=== PATIENT | female | born 1935 | race Caucasian/White ===

== ENCOUNTER 2020-07-09 00:24 | Outpatient (CLI) | payer MEDICARE, SELFPAY ==
[2020-07-10 03:00] LABS: SARS-CoV-2 RNA PCR Negative
== END 2020-07-09 00:25 | disposition home or self-care (01) ==
LOC: ANHCOVIDDT 00:24
PROVIDERS: PCP Family Medicine; Visit Provider Specialist
DX: Z01.812 Encounter for preprocedural laboratory examination (principal); Z20.828 Contact with and (suspected) exposure to other viral communicable diseases
CPT/HCPCS: 87635; C9803; U0003

== ENCOUNTER 2020-07-11 01:49 | Day surgery (SDC) | payer MEDICARE, SELFPAY ==
[2020-07-10 17:33] VITALS: BMI 28.3
[2020-07-11] VITALS (17 sets, daily range): BP systolic 112–207; BP diastolic 54–98; PULSE 61–70; RESP 13–21; TEMP 36.2–36.6; O2SAT 95–100
--- NOTE | 2020-07-11 09:30 | SUR.PREOP ---
ARRIVES AMBULATORY TO [facility] FOR SCHEDULED LHC W/ DR. HOLDEN. AT SIDE. DENIES CP OR SOB ON ARRIVAL. IS A&OX3, GAIT STEADY. ORIENTED TO ROOM , PLAN OF CARE, PROCEDURE. QUESTIONS ANSWERED. VOICES UNDERSTANDING. IV STARTED, LABS SENT, VS OBTAINED, PULSES MARKED, HAIR CLIPPED, CONSENT SIGNED. WILL CONTINUE TO MONITOR.
--- NOTE | 2020-07-11 09:55 | SUR.PREOP ---
DR. HOLDEN TO BEDSIDE TO SEE PT.
[2020-07-11 09:57] LABS: Basophils Absolute Auto 0.1 K/mm3 (0.0-0.1); Basophils Percent Auto 0.8 % (0.2-1.2); Eosinophils Absolute Auto 0.1 K/mm3 (0-0.3); Eosinophils Percent Auto 1.2 % (0-4.4); Hematocrit 42.1 % (37.0-47.0); Hemoglobin 14.2 g/dL (12.0-15.0); Immature Granulocyte Absolute 0.02 K/mm3 (0.00-0.031); Immature Granulocyte Percent A 0.3 % (0-0.5); Lymphocytes Absolute Auto 1.47 K/mm3 (0.9-3.2); Lymphocytes Percent Auto 24.2 % (18.3-44.2); Mean Corpuscular HGB Conc 33.7 g/dl (32-36); Mean Corpuscular Hemoglobin 32.1 pg (26-34); Mean Corpuscular Volume 95.2 fl (80-100); Mean Platelet Volume 9.5 fl (7.4-10.4); Monocytes Absolute Auto 0.5 K/mm3 (0.1-0.6); Monocytes Percent Auto 7.4 % (2.6-8.5); Neutrophils Percent Auto 66.1 % (45.5-73.1); Platelet Count Result 272 k/mm3 (150-375); Red Blood Count 4.42 M/mm3 (4.2-5.4); Red Cell Distribution Width 12.9 % (11.5-14.5); White Blood Count 6.1 K/mm3 (4.5-10.0)
[2020-07-11 10:06] LABS: INR 0.9; Prothrombin Time 13.1 Seconds (11.1-14.7)
[2020-07-11 10:07] LABS: Anion Gap 11 mmol/L (8-16); Blood Urea Nitrogen 17 mg/dL (7-17); Calcium 10.2 mg/dL (8.4-10.2); Carbon Dioxide 31 mmol/L (22-30); Chloride 98 mmol/L (98-107); Estimated Glomerular Filt Rate > 60; Glucose 101 mg/dL (65-105); Potassium 3.9 mmol/L (3.4-5.0); Sodium 140 mmol/L (137-145)
--- NOTE | 2020-07-11 10:37 | WPDMODSED ---
Moderate Sedation Note-Pt Data Patient Data Diagnosis: intermittent atypical chest pain abnormal nuclear stress test Present Complaint: rare episodes of nonexertional chest discomfort Procedure to be performed/Plan: left heart catheterization Allergies Allergy/AdvReac Type Severity Reaction Status Date / Time clarithromycin Allergy Unknown Unknown Verified 07/11/20 10:18 metronidazole Allergy Unknown Unknown Verified 07/11/20 10:18 nystatin Allergy Unknown Unknown Verified 07/11/20 10:18 LEVOFLOXICIN Allergy Unknown Unknown Uncoded 07/11/20 10:18 SULFA Allergy Unknown Unknown Uncoded 07/11/20 10:18 Home Medications Medication Instructions Recorded Confirmed Type omeprazole 20 mg capsule,delayed 20 mg PO DAILY #90 cap 11/28/19 07/10/20 Rx release simvastatin 10 mg tablet 10 mg PO DAILY #90 tablet 12/01/19 07/10/20 Rx aspirin 81 mg tablet,delayed 81 mg PO DAILY 02/05/20 07/10/20 History release coenzyme Q10 100 mg capsule 100 mg PO DAILY 02/05/20 07/10/20 History docusate sodium 50 mg capsule 50 mg PO DAILY 02/05/20 07/10/20 History glucosam 750 mg-chondroi 100 1 tablet PO DAILY 02/05/20 07/10/20 History mg-hyalur 1.65 mg-CF borate 108 mg tablet krill oil 500 mg capsule 500 mg PO DAILY 02/05/20 07/10/20 History methylsulfonylmethane 1,000 mg 1,000 mg PO BID 02/05/20 07/10/20 History capsule wjgxmimkrklo-kpckzkbq-vytmti tablet 1 tablet PO DAILY 02/05/20 07/10/20 History psyllium husk 0.4 gram capsule 0.4 gm PO DAILY 02/05/20 07/10/20 History losartan 100 See Rx Instructions .ROUTE 06/25/20 07/10/20 Rx mg-hydrochlorothiazide 25 mg tablet .COMPLEX #90 tablet calcium phosphate-vitamin D3 1 tablet PO DAILY 07/10/20 07/10/20 History lutein-zeaxanthin 1 cap PO DAILY 07/10/20 07/10/20 History Current Medications: Active Medications Sodium Chloride (Normal Saline Iv) 500 mls @ 100 mls/hr IV CONT .Q5H KETAN Sedation/Anesthesia: No previous sedation/anesthesia problems (including family history). [facility] Past Medical History Medical History (Updated 02/05/20 @ 15:59 by Leo Berkowitz MD) Bilateral cataracts GERD without esophagitis Hyperlipidemia Hypertension Prediabetes Surgical History Surgical History (Updated 02/05/20 @ 16:14 by Leo Berkowitz MD) H/O knee surgery torn meniscus repair - right(2000), left(2005) Family History Family History Father Diabetes mellitus Mother Hypertension Acute myocardial infarction Cerebrovascular accident Social History Social History Smoking status: Never smoker Second hand tobacco smoke exposure: Yes Alcohol intake: never Substance use: never Substance use type: does not use Living arrangements: with family Gender identity (if verbalized by the patient): Female Spiritual care concerns: No Agree to blood products: Yes Mod Sed Physical Exam Physical Exam Pre Procedural Exam: Normal: Neck, Throat, Airway, Lungs, Heart Size, Heart Rate, Heart Rhythm, Neuro Exam and Extremities and Variation: Appearance ( pleasant short statured white female no distress) Hours since solid foods: 12 Hours since liquid intake: 12 Internal Medicine - PN: Obj Da Vital Signs Vital Signs: Vital Signs - 24 hr 07/11/20 09:45 Temperature 36.6 C Pulse Rate 67 Respiratory Rate 16 Blood Pressure 207/81 H Pulse Oximetry 98 Meds/Results Medications: Active Medications Generic Name Dose Route Start Last Admin Trade Name Freq PRN Reason Stop Dose Admin Sodium Chloride 500 mls @ 100 mls/hr 07/11/20 06:00 Normal Saline Iv IV CONT .Q5H KETAN Labs CBC & Chem 7: 07/11/20 09:45 07/11/20 09:45 Labs: Laboratory Results - last 24 hr 07/11/20 07/11/20 07/11/20 09:45 09:45 09:45 WBC 6.1 RBC 4.42 Hgb 14.2 Hct 42.1 MCV 95.2 MCH 32.1 MCHC 33.7 RDW 12.9 Plt Co
--- NOTE | 2020-07-11 11:13 | WPDCARDPROC ---
Cardiac Cath Procedure Note Date of procedure:: 07/11/20 Performing physician:: Hernan Ham MD Indication:: intermittent atypical sounding chest pain abnormal nuclear stress test Brief clinical history:: this is an 84-year-old woman without previous documented coronary artery disease was experiencing intermittent episodes of chest pain both with and without exertion. A nuclear stress test was significantly abnormal prompting recommendation for angiography. Procedure Procedure performed:: Left heart catheterization with left ventriculography and coronary angiography Sedation/Medication given:: Versed 2 mg case start time 10:49 a.m. case end time 11:03 a.m. sedation provided by Angeles Cortez RN, trained observer Access site:: right femoral artery Estimated blood loss:: 20-30 cc Procedure note:: patient was brought to the cardiac catheterization lab in the postabsorptive state the right femoral triangle was prepped and draped in the usual fashion. Anesthesia was provided with 1% lidocaine infiltrated locally. Using the modified Seldinger technique the right femoral artery was punctured. Immediately after obtaining arterial flow the patient coughed and the needle came out of the artery I then held manual pressure for hemostasis and punctured the artery a 2nd time. Following this a 5 Wallisian vascular sheath was placed. There was a moderate amount of oozing around the 5 Wallisian the sheath and so I upsized to a 6 Wallisian sheath prior to continuing and performing left heart catheterization. Five Wallisian angled pigtail catheter was used to document left-sided hemodynamics and perform a left ventriculogram in the TAVERAS projection. After this standard 5 Wallisian FL4 and JR4 catheters were used to engage inject the left and right coronaries in multiple projections. The procedure was well tolerated. Patient was taken to the holding area for manual sheath removal at the termination of the case. She left the factory laborer with no evidence of a groin hematoma despite the need to hold pressure as mentioned above. Findings:: Hemodynamics: Central aortic pressure 1 62/58 left ventricle 162/0 end-diastolic of 10. There is no gradient on pullback across the aortic valve. Left ventricle is normal in size LV contractility appears to be vigorous hyperdynamic ejection fraction appears to be in the vicinity of 70-75% by visual estimation the left main coronary artery is nicely patent the LAD is a medium caliber artery proximally giving rise to a fairly large septal perforating branch after this the LAD itself is 100% occluded with no antegrade filling. Circumflex is a medium caliber artery giving rise to the marginal branch is there is a 99% stenosis in the proximal 3rd of the circumflex followed by another long somewhat complex 80-90% stenosis between the 2 major marginal branches. There is some collateral filling from the circumflex to the distal RCA. The right coronary artery is a small to medium in caliber is 100% occluded in the 1st portion. There is a acute marginal RV branch prior to the occlusion that is nicely patent and provides a collateral to the mid LAD. There is late filling of the distal right coronary vessels and as detailed above some left to right collateral filling of these vessels as well. Conclusion:: 1. Surprisingly severe three-vessel coronary artery disease in this minimally symptomatic 84-year-old lady 2. hyperdynamic left ventricular systolic function 3. 100% occlusion of the left anterior descending after large septal perforating complex with collateral flow from the acute marginal RCA branch. 4. To serial high-grade complex lesions in the circumflex 99% proximally and 90% in the midportion as detailed above 5. 100% occlusion of the proximal RCA with remaining patency of an acute marginal branch which collateralizes the occluded LAD Hernan Ham MD [facility]
--- NOTE | 2020-07-11 12:50 | SUR.PHASEII ---
DR. MARI TO BEDSIDE TO SPEAK W/ PT AND .
--- NOTE | 2020-07-11 18:39 | SUR.PHASEII ---
1822-pt up to the restroom after bedrest completed. Groin soft and non-tender both before and after rising. Moderate right pedal pulse noted. AOx4. Will continue to monitor.
--- NOTE | 2020-07-11 19:44 | SUR.PHASEII ---
1930-pt given D/C orders and instructions. Questions answered and verbalized understanding. AOx4. Emphasized the importance of absolutely no strenuous activity until visiting the CV surgeon. Pt and family verbalized understanding. PIV removed intact. Groin soft and non-tender, no evidence of bleeding or hematoma noted. Moderate right pedal pulse noted. Taken via wheelchair to waiting vehicle. No distress noted or verbalized at time of departure.
== END 2020-07-11 19:48 | disposition home or self-care (01) ==
PROVIDERS: PCP Family Medicine; Visit Provider Specialist
PROC: 4A023N7 Measurement of Cardiac Sampling and Pressure, Left Heart, Percutaneous Approach (ICD-10-PCS; CPT 93452; principal; 2020-07-11 10:00)
DX: I25.10 Atherosclerotic heart disease of native coronary artery without angina pectoris (principal); R94.39 Abnormal result of other cardiovascular function study; R07.89 Other chest pain; I10 Essential (primary) hypertension; E78.5 Hyperlipidemia, unspecified; R73.03 Prediabetes; K21.9 Gastro-esophageal reflux disease without esophagitis; Z79.82 Long term (current) use of aspirin
CPT/HCPCS: 36415; 80048; 85025; 85610; 93458; C1887; C1894; J1644; J2250; J2405; J3010; J7040

== ENCOUNTER → 2020-07-17 09:56 | Outpatient (CLI) | payer MEDICARE, SELFPAY ==
--- NOTE | ~2020-07-17 | DEXA_ITS ---
Bone Density Report Name: Zulema Bravo Age: 84 Sex: Female Ethnicity: White Date of : 1935 Indication: postmenopausal; screening for osteoporosis; height loss; hysterectomy; Referring Provider: Leo Berkowitz Study: Bone densitometry was performed. Exam Date: July 17, 2020 Accession number: [id number] Bone Density: Region BMD T-score Z-score Classification AP Spine (L1, L2) 0.955 -0.2 2.4 Normal Femoral Neck (Left) 0.637 -1.9 0.5 Osteopenia Total Hip (Left) 0.924 -0.1 2.1 Normal Femoral Neck (Right) 0.735 -1.0 1.4 Normal Total Hip (Right) 0.875 -0.6 1.7 Normal Total Hip Mean 0.900 -0.4 1.9 Normal World Health Organization criteria for BMD impression classify patients as: Normal (T-score at or above -1.0), Osteopenia (T-score between -1.0 and -2.5), or Osteoporosis (T-score at or below -2.5). 10-year Fracture Risk(1): Major Osteoporotic Fracture 15% Hip Fracture 4.2% Reported Risk Factors: [place] (), Neck BMD=0.637, BMI=29.1 (1) FRAX(R) Version 3.08. Fracture probability calculated for an untreated patient. Fracture probability may be lower if the patient has received treatment. Clinical Information Provided by Patient: Has used the following medications: Vitamin D, Calcium, MTV Has the following medical conditions: Hysterectomy Patient maximum height was 60 Menopause Age: 47 No regular weight bearing exercise Does not regularly consume dairy products Drinks caffeinated beverages Onset of menses at age 13 Number of children 2 Missed period for more than 6 months in a row Impression: The patient has low bone mass, based on the Left Femoral Neck T-score. The patient has an estimated ten-year risk of hip fracture of 4.2% and an estimated ten-year risk of major fracture of 15%, based on the WHO FRAX algorithm. Discussion: BONE DENSITY IS LOW AT ONE OR MORE SKELETAL SITES. THE PATIENT'S BMD AND CLINICAL RISK FACTORS CONTRIBUTE TO THIS PATIENT'S INCREASED RISK OF FRACTURE. This patient's lowest T-score is low at one or more skeletal sites. It meets the World Health Organization's (WHO) criteria for ?low bone mass? (T-score between -1.0 and -2.5). The patient's 10-year risk of hip fracture as calculated by FRAX exceeds the threshold where pharmacological therapy is recommended by the National Osteoporosis Foundation (NOF). However, all treatment decisions require clinical judgment and consideration of individual patient factors, including patient preferences, comorbidities, previous drug use, risk factors not captured in the FRAX model (e.g., frailty, falls, vitamin D deficiency, increased bone turnover, interval significant decline in bone density) and possible under or overestimation of fracture risk by FRAX. The patient should follow a healthful lifestyle (good nutr
--- NOTE | ~2020-07-17 | MM_ITS ---
EXAMINATION: MM screening ania BI w haydee HISTORY: Screening mammogram, family history of breast cancer in her sister. TECHNIQUE: Craniocaudal and mediolateral oblique 3-D tomosynthesis images were obtained and synthetic 2-D images were generated. CAD analysis was submitted and interpreted. COMPARISON: 06/08/2019, 07/03/2018 BREAST PARENCHYMAL COMPOSITION: There are scattered areas of fibroglandular density. FINDINGS: Scattered benign-appearing calcifications are present. There is no evidence of suspicious m ass, calcification, or architectural distortion to suggest malignancy in either breast. There has bee n no suspicious interval change. IMPRESSION: 1. No mammographic evidence of malignancy. 2. Recommend routine screening mammography in one year. BI-RADS Category 2: Benign finding(s). Reviewed, dictated and finalized at location A. ONOLOGIST INTENSIVIST
== END ==
PROVIDERS: PCP Family Medicine; Visit Provider Family Medicine
DX: Z12.31 Encounter for screening mammogram for malignant neoplasm of breast (principal); Z78.0 Asymptomatic menopausal state; M85.852 Other specified disorders of bone density and structure, left thigh
CPT/HCPCS: 77063; 77067; 77080

== ENCOUNTER 2020-08-03 13:11 | Emergency (ER) | payer MEDICARE, SELFPAY ==
--- NOTE | ~2020-08-03 | XR_ITS ---
XR chest 1V portable DATE: 08/03/2020 13:50 INDICATION: Left upper chest/back pain, arm pain TECHNIQUE: Portable upright AP chest on 08/03/2020 at 1339 hours COMPARISON: None FINDINGS: Old healed right rib fractures. There is mild scoliosis and degenerative spurring of the th oracic and lumbar spine. Normal heart size. No hilar or mediastinal enlargement. No pulmonary infiltrate or consolidation, ple ural effusion or pulmonary vascular congestion or pneumothorax. IMPRESSION: No active cardiopulmonary disease Reviewed, dictated and finalized at location A. DREN'S SERVICE SUPERVISOR
[2020-08-03 13:10] VITALS: BP 162/65; PULSE 76; RESP 18; TEMP 36.7; O2SAT 100
--- NOTE | 2020-08-03 13:26 | ED.CHESTPAIN ---
HPI - Chest Pain General Chief Complaint: Chest Pain Stated Complaint: left arm numbness Time Seen by Provider: 08/03/20 13:18 History of Present Illness HPI narrative: Brought in by EMS from home for back and arm pain. She has intermittent pain in the back near the scapula and the left arm around the elbow for the past 2 days. She has a h/o of CAD and is scheduled for bypass in the next few weeks. She was afraid this pain was related. She tried taking nitroglycerine without relief. She does complain of some CRAIG, which seems to be separate from the pain. She contacted her print color operator and they told her to come get checked out. No CP, palpitations. Related Data Home Medications Medication Instructions Recorded Confirmed aspirin 81 mg tablet,delayed 81 mg PO DAILY 02/05/20 07/10/20 release coenzyme Q10 100 mg capsule 100 mg PO DAILY 02/05/20 07/10/20 docusate sodium 50 mg capsule 50 mg PO DAILY 02/05/20 07/10/20 glucosam 750 mg-chondroi 100 1 tablet PO DAILY 02/05/20 07/10/20 mg-hyalur 1.65 mg-CF borate 108 mg tablet krill oil 500 mg capsule 500 mg PO DAILY 02/05/20 07/10/20 methylsulfonylmethane 1,000 mg 1,000 mg PO BID 02/05/20 07/10/20 capsule mumhkvzbppsn-rpiekqao-inarel tablet 1 tablet PO DAILY 02/05/20 07/10/20 psyllium husk 0.4 gram capsule 0.4 gm PO DAILY 02/05/20 07/10/20 calcium phosphate-vitamin D3 1 tablet PO DAILY 07/10/20 07/10/20 lutein-zeaxanthin 1 cap PO DAILY 07/10/20 07/10/20 Allergies Allergy/AdvReac Type Severity Reaction Status Date / Time clarithromycin Allergy Unknown Unknown Verified 08/03/20 13:18 metronidazole Allergy Unknown Unknown Verified 08/03/20 13:18 nystatin Allergy Unknown Unknown Verified 08/03/20 13:18 LEVOFLOXICIN Allergy Unknown Unknown Uncoded 08/03/20 13:18 SULFA Allergy Unknown Unknown Uncoded 07/11/20 10:18 Review of Systems Review of Systems: All systems reviewed & are unremarkable except as noted in HPI and below Constitutional: Constitutional: Denies chills and Denies fever(s) Cardiovascular: Cardiovascular: Denies chest pain Respiratory: Respiratory: Reports dyspnea on exertion Gastrointestinal: Gastrointestinal: Denies abdominal pain, Denies nausea and Denies vomiting Musculoskeletal: Musculoskeletal: Reports back pain Neurologic: Denies dizziness, Denies numbness and Denies weakness PMFSH Past Medical History Medical History Bilateral cataracts GERD without esophagitis Hyperlipidemia Hypertension Prediabetes Surgical History Surgical History H/O knee surgery torn meniscus repair - right(2000), left(2005) Family History Family History Father Diabetes mellitus Mother Hypertension Acute myocardial infarction Cerebrovascular accident Social History Social History Smoking status: Never smoker Second hand tobacco smoke exposure: Yes Alcohol intake: never Substance use: never Substance use type: does not use Gender identity (if verbalized by the patient): Female Spiritual care concerns: No Agree to blood products: Yes Exam Const: General: no acute distress and alert Nutritional Appearance: well nourished Orientation/consciousness: patient oriented x3 HENMT: Head: normal to inspection Neck: Neck: normal visual inspection Chest: Chest palpation & inspection: normal inspection of the chest Resp: Effort & Inspection: normal respiratory effort Auscultation: clear to auscultation bilaterally Cardio: Rate: regular rate Rhythm: regular rhythm GI: GI Palp: Yes Soft to palpation and No Tenderness to palpation present (GI) Back/Spine/Pelvis: Other: Tender in left trapezius, paraspinal muscles, and rhomboid Skin: General skin exam: normal color Rashes: no rashes Wounds: no wounds Neuro: Gen
[2020-08-03] MEDS: diazePAM INJ (*CRX) 10 MG/2 ML SYRINGE 5 MG IV PUSH (13:42)
[2020-08-03 13:53] LABS: Basophils Absolute Auto 0.1 K/mm3 (0.0-0.1); Basophils Percent Auto 1.1 % (0.2-1.2); Eosinophils Absolute Auto 0.1 K/mm3 (0-0.3); Eosinophils Percent Auto 2.4 % (0-4.4); Hematocrit 36.3 % (37.0-47.0); Hemoglobin 12.5 g/dL (12.0-15.0); Immature Granulocyte Absolute 0.01 K/mm3 (0.00-0.031); Immature Granulocyte Percent A 0.2 % (0-0.5); Lymphocytes Absolute Auto 1.18 K/mm3 (0.9-3.2); Mean Corpuscular HGB Conc 34.4 g/dl (32-36); Mean Corpuscular Hemoglobin 32.3 pg (26-34); Mean Corpuscular Volume 93.8 fl (80-100); Mean Platelet Volume 9.7 fl (7.4-10.4); Monocytes Absolute Auto 0.4 K/mm3 (0.1-0.6); Monocytes Percent Auto 8.8 % (2.6-8.5); Neutrophils Absolute Auto 2.8 K/mm3 (1.3-6.7); Neutrophils Percent Auto 61.5 % (45.5-73.1); Platelet Count Result 249 k/mm3 (150-375); Red Blood Count 3.87 M/mm3 (4.2-5.4); Red Cell Distribution Width 12.7 % (11.5-14.5); White Blood Count 4.5 K/mm3 (4.5-10.0)
--- NOTE | 2020-08-03 13:59 | ECG_ITS ---
Measurements Intervals Foley Rate: 56 P: 38 [place]: 155 QRS: -16 QRSD: 90 T: 54 QT: 397 QTc: 386 Interpretive Statements SINUS BRADYCARDIA LEFT VENTRICULAR HYPERTROPHY AND ST-T CHANGE BASELINE ARTIFACT- I, III, AVL, AVF BORDERLINE ECG Electronically Signed On 08-03-2020 15:46:49 MANAGER HEMATOLOGY by Luis Tanner D.O.
[2020-08-03 14:06] LABS: Anion Gap 6 mmol/L (8-16); Blood Urea Nitrogen 16 mg/dL (7-17); Calcium 9.8 mg/dL (8.4-10.2); Carbon Dioxide 31 mmol/L (22-30); Chloride 98 mmol/L (98-107); Estimated CRCL calculation 50 ml/min; Estimated Glomerular Filt Rate > 60; Glucose 94 mg/dL (65-105); Potassium 3.8 mmol/L (3.4-5.0); Sodium 135 mmol/L (137-145)
[2020-08-03 14:18] LABS: Troponin I < 0.012 ng/mL (0.000-0.034)
[2020-08-03 15:27] VITALS: BP 166/69; PULSE 53; RESP 18; O2SAT 99
[2020-08-03 16:06] VITALS: BP 166/70; PULSE 57; RESP 18; O2SAT 98
== END 2020-08-03 16:12 | disposition home or self-care (01) ==
PROVIDERS: Emergency Provider Emergency Medicine; PCP Family Medicine
DX: M54.6 Pain in thoracic spine (principal); K21.9 Gastro-esophageal reflux disease without esophagitis; E78.5 Hyperlipidemia, unspecified; I10 Essential (primary) hypertension; H26.9 Unspecified cataract; R73.03 Prediabetes; Z79.82 Long term (current) use of aspirin; Z79.84 Long term (current) use of oral hypoglycemic drugs; R00.1 Bradycardia, unspecified; I51.7 Cardiomegaly
CPT/HCPCS: 36415; 71045; 80048; 84484; 85025; 93005; 96374; 99284; J3360

== ENCOUNTER → 2020-10-16 11:42 | Outpatient (CLI) | payer MEDICARE, SELFPAY ==
--- NOTE | ~2020-10-16 | XR_ITS ---
EXAMINATION: XR ribs LT 2V w CXR 2V INDICATION: Left chest pain TECHNIQUE: PA and lateral views of the chest and 3 views of the left ribs were obtained. COMPARISON: 08/03/2020 FINDINGS: There are changes of interval coronary artery bypass grafting. The lungs are free of acute opacities. There is no pleural effusion or pneumothorax. There is an age-indeterminate fracture of th e left first rib. Multiple healed right-sided rib fractures are noted. IMPRESSION: 1. Age-indeterminate fracture of the left first rib. 2. Interval coronary artery bypass grafting. Reviewed, dictated and finalized at location A. GENCY SERVICE WORKER
== END ==
PROVIDERS: PCP Nurse Practitioner Family; Visit Provider Nurse Practitioner Family
DX: R07.81 Pleurodynia (principal); S22.32XD Fracture of one rib, left side, subsequent encounter for fracture with routine healing; X58.XXXD Exposure to other specified factors, subsequent encounter
CPT/HCPCS: 71046; 71100

== ENCOUNTER 2020-12-22 12:32 | Outpatient (CLI) | payer MEDICARE, SELFPAY ==
--- NOTE | ~2020-12-22 | US_ITS ---
EXAMINATION: US venous doppler LE RT DATE: 12/22/2020 13:11 INDICATION: Right lower limb pain. TECHNIQUE: Grayscale ultrasound images without and with compression and Doppler ultrasound images of the right lower extremity veins were obtained. COMPARISON: Ultrasound 09/15/2017 FINDINGS: The visualized portions of right common femoral vein, profunda (deep) femoral vein, femoral vein, pop liteal vein, peroneal veins, posterior tibial veins, and greater saphenous vein outflow are patent. IMPRESSION: 1. No deep venous thrombosis. Reviewed, dictated and finalized at location B.
== END 2020-12-22 12:33 | disposition home or self-care (01) ==
LOC: ANHIMG 12:43
PROVIDERS: PCP Internal Medicine Cardiovascular Disease; Visit Provider Internal Medicine Cardiovascular Disease
DX: R60.0 Localized edema (principal)
CPT/HCPCS: 93971

== ENCOUNTER 2021-01-09 13:30 | Outpatient (RCR) | payer MEDICARE, SELFPAY ==
--- NOTE | 2020-12-11 10:22 | PTOPEVAL ---
PHYSICAL THERAPY EVALUATION Thank you for referring Zulema Bravo to [facility].? Zulema was evaluated for the dx of cerivcal OA/pain. The patient is scheduled to be seen for therapy?2 x/week for 4 weeks. Please review, sign, date and return this plan of care NORMA. I agree with and certify that the following plan of care is medically necessary. Referring Physician Date Attending Provider: Briseyda ARNOLD *PT Outpatient Evaluation Start: 12/11/20 09:33 Freq: Status: Active Protocol: Document 12/11/20 09:33 [facility] (Rec: 12/11/20 10:13 [facility] [id number]) Therapy Assessment Status Assessment Status Evaluation Evaluation Information Problem Additional Evaluation Detail Pt reports seeing a chiropractor for a few months due to neck pain which helped but had to stop due to having heart bypass surgery in Aug. Pt had trouble with her neck after the heart surgery so she was seeing the chiropractor for last few months until about a week ago. Pt complains of pain at her neck and up into the back of her head. The pain is worse in the evening. Pt does her housework, cooking, shopping. Diagnostic Tests X-Rays For This Problem Yes: cervical OA MRI For This Problem Yes: total spine OA Pain Assessment Timing of Pain Assessment Timing of Pain Assessment Assessment Pain Scale Pain Scale Used Numeric (1 - 10) Self Report Pain Assessment Neck Reported Pain Level 8 Pain Description Heavy,Tightness,With Movement Pain Frequency Chronic Greatest Pain Intensity 10 Pain Aggravating Factors Bending,Lifting Pain Behaviors Anxious,Guarding Pain Score Pain Score 8: Self Report Interventions Used Interventions Used By Clinicians Education,Heat Pain Relief Interventions Used By Heat,Inactivity/Rest,Position Patient Change Cervical and Lumbar ROM Cervical ROM Cervical Flexion (0-60) 30 Query Text:Active in Degrees Cervical Extension (0-70) 23 Query Text:Active in Degrees Cervical Lateral Flexion Right (0-50) 25 Query Text:Active in Degrees Cervical Lateral Flexion Left (0-50) 24 Query Text:Active in Degrees Cervical Rotation Right (0-90) 12 Query Text:Active in Degrees Cervical Rotation Left (0-90) 12 Query Text:Active in Degrees Upper Extremity Range of Neal
--- NOTE | 2021-01-09 14:16 | PTOPEVAL ---
PHYSICAL THERAPY DISCHARGE Thank you for referring Zulema Bravo to [facility].? The patient has been seen 9 visits for the dx of cervical OA/pain. Zulema's goals are essentially met and peaked with a skilled PT need. DC PT. Please review, sign, date and return this plan of care. I agree with and certify the following plan of care. Referring Physician Date Referring Provider: Briseyda ESPANA RN *PT Outpatient Discharge Start: 12/11/20 09:33 Freq: Status: Active Protocol: Document 01/09/21 13:27 [facility] (Rec: 01/09/21 14:16 [facility] [id number]) Therapy Assessment Status Assessment Status Assessment Status Discharge Outpatient Past Medical History Cardiovascular History Hx Chest Pain Yes Hx Hypercholesterolemia Yes Hx Hypertension Yes Evaluation Information Problem Diagnosis cervical pain/OA Onset chronic Additional Evaluation Detail Patient feels she is better since the eval noting her neck turns better and pain is less intense/less frequent. The pain is still worse in the evening and doesn't always sleep well due to the pain. Pain Assessment Timing of Pain Assessment Timing of Pain Assessment Assessment Pain Scale Pain Scale Used Numeric (1 - 10) Self Report Pain Assessment Neck Reported Pain Level 4 Pain Description Tightness Pain Frequency Acute,Chronic Other Pain Aggravating Factors weather Pain Score Pain Score 4: Self Report Interventions Used Interventions Used By Clinicians Education,Exercise,Heat,Manual Therapy Techniques Pain Relief Interventions Used By Heat,Inactivity/Rest,Position Patient Change Cervical and Lumbar ROM Cervical ROM Cervical Flexion (0-60) 45 Query Text:Active in Degrees Cervical Extension (0-70) 37 Query Text:Active in Degrees Cervical Lateral Flexion Right (0-50) 25 Query Text:Active in Degrees Cervical Lateral Flexion Left (0-50) 24 Query Text:Active in Degrees Cervical Rotation Right (0-90) 18 Query Text:Active in Degrees Cervical Rotation Left (0-90) 19 Query Text:Active in Degrees Palpation Assessment Palpation Palpation decreased 50% to a minimal tightness at cervical paraspinals, scalenes, SCM, levator scapulae and upper/mid traps sina. Gait Assessment Gait Pattern Assessment Other Gait Observations less
== END 2021-01-14 09:12 | disposition home or self-care (01) ==
LOC: ANHPT 13:30
PROVIDERS: PCP Nurse Practitioner Family
DX: M54.2 Cervicalgia (principal); M79.12 Myalgia of auxiliary muscles, head and neck; M79.18 Myalgia, other site
CPT/HCPCS: 97014; 97110; 97140; 97162; G0283

== ENCOUNTER → 2022-05-18 12:50 | Outpatient (CLI) | payer MEDICARE, SELFPAY ==
--- NOTE | ~2022-05-18 | MM_ITS ---
EXAMINATION: MM screening ania BI w haydee HISTORY: Screening mammogram TECHNIQUE: Craniocaudal and mediolateral oblique 3-D tomosynthesis images were obtained and synthetic 2-D images were generated. CAD analysis was submitted and interpreted. COMPARISON: 07/17/2020, 07/2019, 07/03/2018 bilateral screening mammogram examinations BREAST PARENCHYMAL COMPOSITION: There are scattered areas of fibroglandular density. FINDINGS: Scattered bilateral benign calcifications. There is no evidence of suspicious mass, calcifi cation, or architectural distortion to suggest malignancy in either breast. There has been no suspici ous interval change. IMPRESSION: 1. No mammographic evidence of malignancy. 2. Recommend routine screening mammography in one year. BI-RADS Category 2: Benign finding(s). Reviewed, dictated and finalized at location A.
== END ==
PROVIDERS: PCP Family Medicine; Visit Provider Family Medicine
DX: Z12.31 Encounter for screening mammogram for malignant neoplasm of breast (principal)
CPT/HCPCS: 77063; 77067

== ENCOUNTER 2022-07-14 11:00 | Outpatient (RCR) | payer MEDICARE, SELFPAY ==
--- NOTE | 2022-05-25 17:27 | PTOPEVAL1 ---
Assessment and note entered by Jennifer Gonzales, PT Evaluation Information Assessment Status Evaluation Reported Pain Level Pain Score 3: Self Report Additional Pain Score Comments pressure increases through the day Assessment PT Clinical Summary Pt present's w/ c/o pain in left side low back and back of left thigh began abour a month ago when was going down stairs and felt like something rolled over in her very low left side of back/ glutes. C/o pressure sensation at L ischial tuberosity, discomfort on L SIJ. Hx of scoliosis, R SIJ impairments, multiple surgeries including full hysterectomy (not laproscopic). Evaluation shows SIJ alignment issue likely L inominate downslip and L inflare with L anterior torsion along with RLE leg longer than left. Pt also demo' s multiple areas of increased mm tone with tenderness related to abnormal alignment and compensation for lumbopelvic muscle weakness. Pt will thus greatly benefit from therapy in order to address these deficits and return to PLOF. Pt was educated on alignment issues, prognosis, and performed initial muscle energy techniques to improve alignment. Was provided initial HEP to assist in self-alignment of pelvis between therapy sessions and educated on benefits of cryotherapy on inflammation and pain. Plan of Care Interventions Manual Therapy,Neuro Re-education,Therapeutic Activities,Therapeutic Exercise,Self-Care/Home Management,Other Other Interventions Taping, shoe insert heel lift These treatments will address the objective and functional deficits as defined above. The patient will be advanced safely and appropriately in order for the patient to progress towards his/her prior level of function. Additional exercises will be introduced and as well as a comprehensive home exercise program upon discharge, if needed, ?to ensure carryover of functional gains achieved in the clinic. This treatment plan has been reviewed and agreement upon by the patient.
--- NOTE | 2022-06-18 15:15 | BUPTOPEVAL1 ---
Assessment and note entered by Jennifer Gonzales, PT Evaluation Information Assessment Status Progress Subjective Information Still having difficulty with going up and down steps, unable to go up with each leg and still goes down backwards. States had increased pain after vacuuming the other day. Reported Pain Level Pain Score 2: Self Report Additional Pain Score Comments 45-50% improved Assessment PT Clinical Summary Pt presents for assessment of progress with her current POC regarding her pelvic alignment issue and left hamstring discomfort. Pt demo's ability to ascend stairs with reciprocal pattern and able to descend with sidestepping pattern vs descending with a retro stepping pattern. Pt cont to demo RLE length increase by 0.5 compared to LLE and will benefit from a heel lift in her left shoe to level her pelvis. Pt educated on benefit of therapy as she is improving but has not fully met her goals. Pt appears reluctant to continue, was educated she may cease therapy at any time and may continue her exercises as she sees fit. Suggested benefit of continuing therapy to resolve remainder of pain, and promote improved functional mobility. Plan of Care Interventions Electrical Stimulation,Hot Pack/Cold Pack,Manual Therapy,Neuro Re-education,Therapeutic Activities, Therapeutic Exercise,Self-Care/Home Management Other Interventions Heel lift left shoe PT Services Indicated Yes Treatment Frequency and 1-2x weekly x 4 weeks Duration These treatments will address the objective and functional deficits as defined above. The patient will be advanced safely and appropriately in order for the patient to progress towards his/her prior level of function. Additional exercises will be introduced and as well as a comprehensive home exercise program upon discharge, if needed, ?to ensure carryover of functional gains achieved in the clinic. This treatment plan has been reviewed and agreement upon by the patient.
--- NOTE | 2022-06-28 16:12 | PCPTNOTE ---
Patient called & cancelled scheduled appointment this week 06/29-07/01 due to wanting to work on exercises at home. Will inform front end assistant if see wants to continue after this week.
--- NOTE | 2022-07-16 10:35 | BUPTOPDC ---
Assessment and note entered by Jennifer Gonzales, PT Assessment Status Discharge Diagnosis back pain and numbness Subjective Information Reports feeling 90% improved. Has been doign her home exercises. Cont to go down her stairs backwards on her hands and knees. States she cannot use her handrail with one hand and is afraid to go down sideways because that was what she was doing when she had the initial injury and felt something roll over in her hip. She does report her pain increases most with sitting long periods (multiple hours at a time) up to a 3/10. Reported Pain Level Pain Score 0: Self Report Additional Pain Score Comments 90% improved Assessment PT Clinical Summary Pt reports feeling 90% improved overall. Pt has a tendency to repeat questions related to her HEP, refer to her prior therapy POC and HEP related to that POC though she has been educated multiple times this is a different issue. Pt education related to current HEP, and mobility has been reenforced multiple times also, handouts and instructions provided related to HEP with patient choosing to perform activities in a different manner than instructed. Overall related to her goals, she shows improved gait without AD, improved speed of gait, improved ROM without pain, but has not shown improvement in her hip strength or alignment of pelvis. As patient is at times less than compliant with therapy, has chosen previously to perform her exercises independently vs attend therapy as POC dictates, and her mobility as she prefers vs how she was educated, we are discharging her from therapy services at this time . Plan of Care Treatment Frequency and Discharge Duration
== END 2022-07-16 15:34 | disposition home or self-care (01) ==
LOC: ANHPT 11:00
PROVIDERS: PCP Family Medicine; Visit Provider Anesthesiology
DX: R20.2 Paresthesia of skin (principal); M54.17 Radiculopathy, lumbosacral region; M46.1 Sacroiliitis, not elsewhere classified; M79.10 Myalgia, unspecified site
CPT/HCPCS: 97014; 97110; 97112; 97140; 97161; 97530; G0283

== ENCOUNTER 2022-12-22 00:22 | Emergency (ER) | payer MEDICARE, SELFPAY ==
[2022-12-22] VITALS (36 sets, daily range): BP systolic 160–195; BP diastolic 64–158; PULSE 65–90; RESP 12–23; TEMP 36.4–36.8; O2SAT 91–100
--- NOTE | ~2022-12-22 | CT_ITS ---
CT Facial Bones Clinical Indication: Injury, swelling Technique: Contiguous axial scans were obtained through the facial bones followed by coronal and sagi ttal reconstructions. Dose reduction technique was used on this scan by utilizing automated exposure control and iterative reconstruction technique. The dose-length product (DLP) was 447.21 mGy-cm. Findings: No fractures are identified. The visualized paranasal sinuses are clear. Intraorbital soft tissues appear normal. Subcutaneous hematoma noted in the scalp of the left forehead. Impression: No fracture identified. Subcutis hematoma in the scalp of the left forehead. Reviewed, dictated and finalized at location . Impression: No fracture identified. Subcutis hematoma in the scalp of the left forehead.
--- NOTE | ~2022-12-22 | CT_ITS ---
Non-contrast Head CT History: Head injury Technique: Axial non-contrast imaging of the brain was performed. Dose reduction technique was used on this scan by utilizing automated exposure control and iterative reconstruction technique. The dose -length product (DLP) was 605.33 mGy-cm. Findings: There is no evidence of intracranial hemorrhage, mass lesion, or acute infarct. Brain par enchyma appears normal. The ventricles and subarachnoid spaces are dilated. The calvarium appears n ormal. The visualized paranasal sinuses and mastoid air cells are clear. There is subcutaneous hemat an in the left forehead scalp. Impression: No acute intracranial modality. [id number] generalized atrophy. Subcutaneous hematoma in the scalp at the left forehead. Reviewed, dictated and finalized at [facility]. Impression: No acute intracranial modality. [id number] generalized atrophy. Subcutaneous hematoma in the scalp at the left forehead.
[2022-12-22 02:26] LABS: Basophils Percent Auto 0.3 % (0.2-1.2); Eosinophils Absolute Auto 0.1 K/mm3 (0-0.3); Eosinophils Percent Auto 0.7 % (0-4.4); Hematocrit 40.6 % (37.0-47.0); Hemoglobin 13.5 g/dL (12.0-15.0); Immature Granulocyte Absolute 0.04 K/mm3 (0.00-0.031); Immature Granulocyte Percent A 0.4 % (0-0.5); Lymphocytes Absolute Auto 1.65 K/mm3 (0.9-3.2); Lymphocytes Percent Auto 16.2 % (18.3-44.2); Mean Corpuscular HGB Conc 33.3 g/dl (32-36); Mean Corpuscular Hemoglobin 32.1 pg (26-34); Mean Corpuscular Volume 96.7 fl (80-100); Mean Platelet Volume 10.4 fl (7.4-10.4); Monocytes Absolute Auto 0.7 K/mm3 (0.1-0.6); Monocytes Percent Auto 6.4 % (2.6-8.5); Neutrophils Absolute Auto 7.8 K/mm3 (1.3-6.7); Platelet Count Result 275 k/mm3 (150-375); White Blood Count 10.2 K/mm3 (4.5-10.0)
[2022-12-22 02:46] LABS: Alanine Aminotransferase 28 U/L (6-35); Alkaline Phosphatase 95 U/L (38-126); Anion Gap 9 mmol/L (8-16); Aspartate Amino Transferase 36 U/L (14-36); Bilirubin,Total 0.4 mg/dL (0.2-1.3); Blood Urea Nitrogen 24 mg/dL (7-17); Calcium 9.8 mg/dL (8.4-10.2); Carbon Dioxide 27 mmol/L (22-30); Chloride 101 mmol/L (98-107); Estimated Glomerular Filt Rate > 60; Glucose 105 mg/dL (65-110); Potassium 3.9 mmol/L (3.4-5.0); Sodium 137 mmol/L (137-145)
[2022-12-22 02:50] LABS: INR 1.1; Prothrombin Time 13.3 Seconds (11.1-14.7)
[2022-12-22] MEDS: TETANUS,DIPHTHERIA,AC PERTUSSIS ADULT (0.5 ML) BOOSTRIX IM (02:55)
--- NOTE | 2022-12-22 03:54 | ED.GENADULT ---
HPI - General Adult General Chief complaint: Fall Stated complaint: head injury Time Seen by Provider: 12/22/22 01:54 History of Present Illness HPI narrative: 87-year-old female history of CAD on aspirin and Plavix presented with mechanical fall. Per patient, she was walking outside her driveway which is on an incline, had a stumble fell and hit her face. Unknown LOC. She noted significant swelling to her forehead and cut to her forehead, so presented to the ED for further evaluation. She denied nausea, vomiting, injury elsewhere, chest pain, shortness of breath, abdominal pain, dysuria, hematuria Past medical history: CAD Past surgical history: CABG Medications: Aspirin, Plavix Allergies: Metronidazole, statin levofloxacin Related Data Home Medications Medication Instructions Recorded Confirmed aspirin 81 mg tablet,delayed 81 mg PO DAILY 02/05/20 03/09/22 release (Aspir-) docusate sodium 50 mg capsule 50 mg PO DAILY 02/05/20 03/09/22 (Stool Softener) glucosam 750 mg-chondroi 100 1 tablet PO DAILY 02/05/20 03/09/22 mg-hyalur 1.65 mg-CF borate 108 mg tablet ([employer]) methylsulfonylmethane 1,000 mg 1,000 mg PO BID 02/05/20 03/09/22 capsule (MSM) szpmiuyziemf-nxecefdz-uomzee tablet 1 tablet PO DAILY 02/05/20 03/09/22 psyllium husk 0.4 gram capsule 0.4 gm PO DAILY 02/05/20 03/09/22 (Daily Fiber) calcium phosphate 250 mg-vitamin 1 tablet PO DAILY 07/10/20 03/09/22 D3 10 mcg (400 unit) chewable tablet lutein 25 mg-zeaxanthin 5 mg 1 cap PO DAILY 07/10/20 03/09/22 capsule clopidogrel 75 mg tablet 75 mg PO DAILY 10/16/20 03/09/22 furosemide 40 mg tablet 20 mg PO QAM 02/10/21 03/09/22 metoprolol tartrate 25 mg tablet 12.5 mg PO BID 02/10/21 03/09/22 amlodipine 2.5 mg tablet 2.5 mg PO DAILY 03/09/22 03/09/22 losartan 100 mg tablet 100 mg PO DAILY 03/09/22 03/09/22 Allergies Allergy/AdvReac Type Severity Reaction Status Date / Time clarithromycin Allergy Unknown Unknown Verified 03/09/22 13:42 metronidazole Allergy Unknown Unknown Verified 03/09/22 13:42 nystatin Allergy Unknown Unknown Verified 03/09/22 13:42 LEVOFLOXICIN Allergy Unknown Unknown Uncoded 03/09/22 13:42 SULFA Allergy Unknown Unknown Uncoded 03/09/22 13:42 Review of Systems Review of Systems: See HPI [facility] Past Medical History Medical History Bilateral cataracts CAD (coronary artery disease) Chronic neck pain GERD without esophagitis Hyperlipidemia Hypertension Prediabetes Surgical History Surgical History H/O knee surgery torn meniscus repair - right(2000), left(2005) History of cataract surgery 2019 - b/l 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 Family History Family History Father Diabetes mellitus Mother Hypertension Acute myocardial infarction Cerebrovascular accident Social History Social History Smoking status: Never smoker Second hand tobacco smoke exposure: Yes Alcohol intake: never Substance use: never Substance use type: does not use Living arrangements: with family Occupation/Education: retired Gender identity (if verbalized by the patient): Female Spiritual care concerns: No Agree to blood products: Yes Exam Narrative: APPEARANCE: Alert, calm and cooperative, no acute distress, phonating, sitting comfortably during visit, frail HEAD: hematoma to forehead with 4 cm laceration, no step offs, no active bleeding EYES: Bilateral ecchymosis to eyes consistent with raccoon eyes, Pupils equal round an reactive to light, extra ocular movements intact, no conjunctival injection Ears: Right sided hemotympanum, no clear liquid, no drainage of blood, left TM within normal limits NOSE: Normal no drainage, no gross evidence of nasal hematoma NECK: Supple, w
== END 2022-12-22 05:40 | disposition short-term general hospital (02) ==
PROVIDERS: Emergency Provider Emergency Medicine; PCP Family Medicine
DX: S00.83XA Contusion of other part of head, initial encounter (principal); S00.12XA Contusion of left eyelid and periocular area, initial encounter; S00.11XA Contusion of right eyelid and periocular area, initial encounter; H73.891 Other specified disorders of tympanic membrane, right ear; Z23 Encounter for immunization; I25.10 Atherosclerotic heart disease of native coronary artery without angina pectoris; E78.5 Hyperlipidemia, unspecified; I10 Essential (primary) hypertension; K21.9 Gastro-esophageal reflux disease without esophagitis; Z95.1 Presence of aortocoronary bypass graft; Z98.42 Cataract extraction status, left eye; Z98.41 Cataract extraction status, right eye; Z79.82 Long term (current) use of aspirin; Z79.02 Long term (current) use of antithrombotics/antiplatelets; W10.2XXA Fall (on)(from) incline, initial encounter
CPT/HCPCS: 36415; 70450; 70486; 80048; 80076; 85025; 85610; 90471; 90715; 99284; 99285

== ENCOUNTER → 2023-07-08 12:52 | Outpatient (CLI) | payer MEDICARE, SELFPAY ==
--- NOTE | ~2023-07-08 | MM_ITS ---
EXAMINATION: MM screening ania BI w haydee HISTORY: Screening mammogram, family history of breast cancer in her sister. TECHNIQUE: Craniocaudal and mediolateral oblique 3-D tomosynthesis images were obtained and synthetic 2-D images were generated. CAD analysis was submitted and interpreted. COMPARISON: 05/18/2022, 07/17/2020, 07/09/2019 BREAST PARENCHYMAL COMPOSITION: There are scattered areas of fibroglandular density. FINDINGS: Scattered benign-appearing calcifications are present. No suspicious mass, calcification, o r architectural distortion are identified in either breast to suggest malignancy. There has been no s uspicious interval change. IMPRESSION: 1. No mammographic evidence of malignancy. 2. Recommend routine screening mammography while the patient remains in good health. BI-RADS Category 2: Benign finding(s). Reviewed, dictated and finalized at location A. IMPRESSION: 1. No mammographic evidence of malignancy. 2. Recommend routine screening mammography while the patient remains in good he alth. BI-RADS Category 2: Benign finding(s).
== END ==
PROVIDERS: PCP Family Medicine; Visit Provider Family Medicine
DX: Z12.31 Encounter for screening mammogram for malignant neoplasm of breast (principal)
CPT/HCPCS: 77063; 77067

== ENCOUNTER 2023-09-27 14:30 | Outpatient (CLI) | payer MEDICARE, SELFPAY ==
[2023-09-27 20:16] LABS: Alanine Aminotransferase 24 U/L (6-35); Albumin Level 4.4 g/dL (3.5-5.1); Alkaline Phosphatase 70 U/L (38-126); Anion Gap 7 mmol/L (8-16); Aspartate Amino Transferase 62 U/L (14-36); Bilirubin,Total 0.5 mg/dL (0.2-1.3); Blood Urea Nitrogen 20 mg/dL (7-17); Calcium 9.5 mg/dL (8.4-10.2); Carbon Dioxide 31 mmol/L (22-30); Chloride 103 mmol/L (98-107); Estimated Glomerular Filt Rate 53; Glucose 118 mg/dL (65-110); Potassium 4.1 mmol/L (3.4-5.0); Sodium 141 mmol/L (137-145)
[2023-09-27 21:53] LABS: Hemoglobin A1C 5.8 % (<5.7)
== END 2023-09-27 14:31 | disposition home or self-care (01) ==
PROVIDERS: PCP Family Medicine; Visit Provider Family Medicine
DX: R73.03 Prediabetes (principal); I10 Essential (primary) hypertension
CPT/HCPCS: 36415; 80053; 83036

== ENCOUNTER 2023-10-25 11:02 | Outpatient (CLI) | payer MEDICARE, SELFPAY ==
[2023-10-25 15:01] LABS: Alanine Aminotransferase 23 U/L (6-35); Albumin Level 4.5 g/dL (3.5-5.1); Alkaline Phosphatase 69 U/L (38-126); Anion Gap 4 mmol/L (8-16); Aspartate Amino Transferase 72 U/L (14-36); Bilirubin,Total 0.5 mg/dL (0.2-1.3); Blood Urea Nitrogen 15 mg/dL (7-17); Calcium 9.8 mg/dL (8.4-10.2); Carbon Dioxide 32 mmol/L (22-30); Chloride 102 mmol/L (98-107); Estimated Glomerular Filt Rate > 60; Glucose 92 mg/dL (65-110); Potassium 4.5 mmol/L (3.4-5.0); Sodium 138 mmol/L (137-145)
== END 2023-10-25 11:03 | disposition home or self-care (01) ==
PROVIDERS: PCP Family Medicine; Visit Provider Family Medicine
DX: I10 Essential (primary) hypertension (principal); N28.9 Disorder of kidney and ureter, unspecified
CPT/HCPCS: 36415; 80053

== ENCOUNTER 2024-04-09 14:00 | Outpatient (CLI) | payer MEDICARE, SELFPAY ==
[2024-04-09 18:46] LABS: Alanine Aminotransferase 24 U/L (6-35); Albumin Level 4.7 g/dL (3.5-5.1); Alkaline Phosphatase 68 U/L (38-126); Anion Gap 12 mmol/L (4-12); Aspartate Amino Transferase 59 U/L (14-36); Bilirubin,Total 0.5 mg/dL (0.2-1.3); Blood Urea Nitrogen 19 mg/dL (7-17); Calcium 9.5 mg/dL (8.4-10.2); Carbon Dioxide 28 mmol/L (22-30); Chloride 98 mmol/L (98-107); Cholesterol 176 mg/dL (0-200); Estimated Glomerular Filt Rate > 60; Glucose 84 mg/dL (65-110); HDL Direct 49 mg/dL; Potassium 4.3 mmol/L (3.4-5.0); Sodium 138 mmol/L (137-145); Triglycerides 218 mg/dL (<150)
[2024-04-09 18:57] LABS: LDL Cholesterol Direct 87 mg/dL
[2024-04-09 19:09] LABS: Basophils Absolute Auto 0.1 K/mm3 (0.0-0.1); Eosinophils Absolute Auto 0.1 K/mm3 (0-0.3); Eosinophils Percent Auto 1.7 % (0-4.4); Hematocrit 42.4 % (37.0-47.0); Hemoglobin 13.4 g/dL (12.0-15.0); Immature Granulocyte Absolute 0.02 K/mm3 (0.00-0.031); Immature Granulocyte Percent A 0.3 % (0-0.5); Lymphocytes Absolute Auto 1.99 K/mm3 (0.9-3.2); Lymphocytes Percent Auto 33.6 % (18.3-44.2); Mean Corpuscular HGB Conc 31.6 g/dl (32-36); Mean Corpuscular Hemoglobin 31.5 pg (26-34); Mean Corpuscular Volume 99.5 fl (80-100); Monocytes Absolute Auto 0.6 K/mm3 (0.1-0.6); Monocytes Percent Auto 9.5 % (2.6-8.5); Neutrophils Absolute Auto 3.2 K/mm3 (1.3-6.7); Neutrophils Percent Auto 53.9 % (45.5-73.1); Platelet Count Result 259 k/mm3 (150-375); Red Blood Count 4.26 M/mm3 (4.2-5.4); Red Cell Distribution Width 13.2 % (11.5-14.5); White Blood Count 5.9 K/mm3 (4.5-10.0)
[2024-04-09 20:08] LABS: Vitamin D 25 Hydroxy 54.6 ng/mL
[2024-04-10 00:03] LABS: Hemoglobin A1C 5.9 % (<5.7)
== END 2024-04-09 14:01 | disposition home or self-care (01) ==
LOC: ANHGOSHLAB 14:01
PROVIDERS: PCP Family Medicine; Visit Provider Nurse Practitioner Family
DX: I10 Essential (primary) hypertension (principal); R53.83 Other fatigue; R73.03 Prediabetes; E78.5 Hyperlipidemia, unspecified; E55.9 Vitamin D deficiency, unspecified
CPT/HCPCS: 36415; 80053; 80061; 82306; 82607; 83036; 84443; 85025

== ENCOUNTER 2024-05-23 15:16 | Emergency (ER) | payer MEDICARE, SELFPAY ==
[2024-05-23 15:24] VITALS: BP 167/70; PULSE 69; RESP 16; TEMP 36.4; O2SAT 100
--- NOTE | 2024-05-23 15:32 | ED.EAR ---
HPI - Ear Problem General Chief complaint: Ear Stated complaint: EARACHE Time Seen by Provider: 05/23/24 15:33 Source: patient, RN notes reviewed and old records reviewed Mode of arrival: ambulatory Limitations: no limitations History of Present Illness HPI Narrative: 88 year old female presents to [facility] care with complaints of right ear pain for the past 5 days with some popping sensation to her ears. Patient reports that when she was washing her hair she got water in her right ear and her ear has felt like she has bubbling in her right ear and it feels clogged and has intermittent pain to her right ear. Patient reports that she has not had any sinus congestion sore throat fever or any dizziness. Patient reports that she has had some headache and she has taken Tylenol for her discomfort, patient has no swelling behind right ear or any redness. MD Complaint: ear pain Location: right ear Duration: intermittent Severity: moderate Discharge from ear: Reports no Treatment prior to arrival: oral analgesic (Tylenol) Related Data Home Medications Medication Instructions Recorded Confirmed aspirin 81 mg tablet,delayed 81 mg PO DAILY 02/05/20 04/09/24 release (Aspir-) docusate sodium 50 mg capsule 50 mg PO DAILY 02/05/20 04/09/24 (Stool Softener) glucosam 750 mg-chondroi 100 1 tablet PO DAILY 02/05/20 04/09/24 mg-hyalur 1.65 mg-CF borate 108 mg tablet ([facility]) methylsulfonylmethane 1,000 mg 1,000 mg PO BID 02/05/20 04/09/24 capsule (MSM) lkfgdbgmpvgw-qwdeoqdy-pffwrg tablet 1 tablet PO DAILY 02/05/20 04/09/24 psyllium husk 0.4 gram capsule 0.4 gm PO DAILY 02/05/20 04/09/24 (Daily Fiber) calcium phosphate 250 mg-vitamin 1 tablet PO DAILY 07/10/20 04/09/24 D3 10 mcg (400 unit) chewable tablet lutein 25 mg-zeaxanthin 5 mg 1 cap PO DAILY 07/10/20 04/09/24 capsule clopidogrel 75 mg tablet 75 mg PO DAILY 10/16/20 04/09/24 metoprolol tartrate 25 mg tablet 12.5 mg PO BID 02/10/21 04/09/24 amlodipine 2.5 mg tablet 2.5 mg PO DAILY 03/09/22 04/09/24 losartan 100 mg tablet 100 mg PO DAILY 03/09/22 04/09/24 furosemide 20 mg tablet 20 mg PO DAILY PRN 03/22/23 04/09/24 cholecalciferol (vitamin D3) 25 50 mcg PO DAILY 09/27/23 04/09/24 mcg (1,000 unit) tablet Allergies Allergy/AdvReac Type Severity Reaction Status Date / Time clarithromycin Allergy Unknown Unknown Verified 05/23/24 15:31 metronidazole Allergy Unknown Unknown Verified 05/23/24 15:31 nystatin Allergy Unknown Unknown Verified 05/23/24 15:31 LEVOFLOXICIN Allergy Unknown Unknown Uncoded 05/23/24 15:31 SULFA Allergy Unknown Unknown Uncoded 05/23/24 15:31 Review of Systems Review of Systems: CONSTITUTIONAL: Denies malaise, chills, sweats, or fever. EYES: Denies visual changes, redness, or discharge. ENT: Reports no rhinorrhea, congestion, sinus pain,stats right otalgia and no sore throat. CARDIOVASCULAR: Denies chest pain, palpitations, or edema. RESPIRATORY: Reports no cough.? Denies dyspnea. GASTROINTESTINAL: Denies abdominal pain, nausea, vomiting, diarrhea SKIN: Denies rash or itching. MUSCULOSKELETAL: Denies myalgia. NEUROLOGIC:Reports some headache. All systems reviewed & are unremarkable except as noted in HPI and below PMFSH Past Medical History Medical History Bilateral cataracts CAD (coronary artery disease) Chronic neck pain GERD without esophagitis Hyperlipidemia Hypertension Osteopenia Prediabetes Surgical History Surgical History H/O knee surgery torn meniscus repair - right(2000), left(2005) History of cataract surgery 2019 - b/l 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 History of hysterectomy (~1982) Family History Family History Father Diabetes mellitus Mother Hypertension Acute myocardial infarction Cerebrova
== END 2024-05-23 15:51 | disposition home or self-care (01) ==
PROVIDERS: Emergency Provider Registered Nurse; PCP Family Medicine
DX: H60.311 Diffuse otitis externa, right ear (principal); I25.10 Atherosclerotic heart disease of native coronary artery without angina pectoris; K21.00 Gastro-esophageal reflux disease with esophagitis, without bleeding; E78.5 Hyperlipidemia, unspecified; I10 Essential (primary) hypertension; M85.80 Other specified disorders of bone density and structure, unspecified site; R73.03 Prediabetes; Z95.1 Presence of aortocoronary bypass graft; Z79.82 Long term (current) use of aspirin
CPT/HCPCS: 99213; G0463

== ENCOUNTER 2024-12-20 12:41 | Outpatient (CLI) | payer MEDICARE, SELFPAY ==
--- OUTSIDE RECORDS SUMMARY | 2024-12-20 12:54 | XMS_ITS | Clinical Summary ---
Author Organization [facility] [address] [facility] [address] Address [address] [place] [address] Care Team Providers Care Rug Layer Name Role Phone Brianna Berkowitz MD Primary Care Provider Hernan Ham MD Unavailable [phone] Jaquan Eldridge MD Unavailable [phone] Allergies Active Allergy Reactions Criticality Noted Date Comments Erythromycin Unknown 08/18/2020 Levofloxacin Unknown 08/18/2020 Metronidazole Unknown 08/18/2020 Nystatin Unknown 08/18/2020 Sulfa (Sulfonamide Antibiotics) Other (See comments) Low Yeast infection Medications aspirin (ASPIR-81) 81 mg tablet take 1 tablet by oral route every day 0 0 08/21/20 15 Active simvastatin (ZOCOR) 10 mg tablet take 1 tablet by oral route every day in the evening 0 0 08/21/20 15 Active multivit-minera p-awzm-bqhrxd (CENTRUM SILVER ULTRA WOMEN'S) tablet 0 0 08/21/20 15 Active docusate sodium (STOOL SOFTENER) 100 mg capsule take 1 tablet by oral route every day at bedtime as needed 0 0 08/21/20 15 Active omeprazole 20 mg tablet,delayed release (DR/EC) take 1 Tablet by Oral route every day 0 0 08/21/20 15 Active PSYLLIUM SEED, WITH DEXTROSE, (FIBER ORAL) Take by mouth 2 (two) times a day Active calcium carbonate-vitam in D3 600 mg (1,500 mg)-800 unit tablet,chewable Take by mouth TAKE EVERY OTHER DAY Active acetaminophen (TYLENOL) 325 mg tablet Take 2 tablets (650 mg total) by mouth every 6 (six) hours 30 tablet 08/26/20 Active Additional Information Patient taking differently:650 mg oralAs needed, Reported on 10/31/2024 lutein-zeaxanth in 25-5 mg capsule Take by mouth Ocuvite Active glucosamine-cho ndroitin 500-400 mg tablet Take 1 tablet by mouth 3 (three) times a day Active cholecalciferol (VITAMIN D-3) 2000 unit capsule 1 capsule (2,000 Units total) Active gpaky-hm-2-dha- fed-scsjdkb-zmv 109-073-30-75 mg capsule Take by mouth Activ e ascorbate calcium-bioflav onoid (Jojo-C with Bioflavonoids) 500-200 mg tablet Take by mouth Active coenzyme Q10 100 mg capsule Take 1 capsule (100 mg total) by mouth daily Active methylsulfonylm ethane 1,000 mg capsule Take by mouth Active nitroglycerin (NITROSTAT) 0.[address] 1 tablet (0.4 mg total) under the tongue every 5 (five) minutes as needed for chest pain May repeat dose q 5 min, up to 3 doses total 25 tablet 11 11/18/19 22 Active furosemide (LASIX) 20 mg tabletIndicatio ns:Coronary artery disease of [place] artery of [place] heart with stable angina pectoris TAKE 1 TABLET (20 MG TOTAL) BY MOUTH DAILY NEEDED (SWELLING). 90 tablet 1 08/02/20 23 Active losartan (COZAAR) 100 mg tablet TAKE 1 TABLET BY MOUTH EVERY DAY 90 tablet 3 09/03/20 24 Active amLODIPine (NORVASC) 5 mg tabletIndicatio ns:Essential hypertension Take 1 tablet (5 mg total) by mouth daily 90 tablet 3 10/31/19 25 Active metoprolol tartrate (LOPRESSOR) 25 mg immediate release tablet TAKE 1/2 TABLET TWICE A DAY BY MOUTH 90 tablet 1 11/13/19 25 Active clopidogreL (PLAVIX) 75 mg tablet TAKE 1 TABLET BY MOUTH EVERY DAY 90 tablet 3 11/27/19 25 Active clopidogreL (PLAVIX) 75 mg tablet TAKE 1 TABLET BY MOUTH EVERY DAY 90 tablet 3 12/26/19 24 025 Discontinued Active Problems Problem Noted Date Diagnosed Date Pulmonary hypertension 08/25/2021 Leg edema, right 12/15/2020 Coronary artery disease invo lving [place] heart without angina pectoris 07/29/2020 Overview (07/29/2020): Added automatically from request for surgery [id number] 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 [place] heart with stable angina pectoris 07/23/2020 Chest heaviness 06/30/2020 CRAIG (dyspnea on exertion) 06/30/2020 Atypical chest pain 08/04/2016 Overview (12/10/2016): Atypical chest pain Essential hypertension 08/21/2015 Overview (12/10/2016): Essential hypertension Systolic ejection murmur 08/21/2015 Overview (12/10/2016): Aortic ejection murmur Hyperlipidemia LDL goal <70 08/21/2015 Overview (12/10/2016): Hyperlipidemia LDL goal <100 Palpitations 08/21/2015 Overview (12/10/2016): Palpitations Encounters Date Type Department Care Team Description 12/17/2024 Telephone [facility] Cardiology [address] [place] [id number] Marino Hsu MD 10/31/2024 9:30 AM SPORTS ANALYST Office Visit [facility] Cardiology [address] [place] [address] Dena Jackson NP Left-sided weakness (Primary Dx); Essential hypertension; Coronary artery disease involving [place] coronary artery of [place] heart without angina pectoris from Last 3 Months Surgical History Surgery Date Site/Laterality Comments HYSTERECTOMY CARDIAC CATHETERIZATION KNEE CARTILAGE SURGERY Bilateral Medical History Medical History Date Comments Coronary artery disease Hypertension Hyperlipidemia Diverticulitis of colon History of angina Fatigue Back pain Neck pain PONV (postoperative nausea and vomiting) Delayed emergence from general anesthesia GERD (gastroesophageal reflux disease) Arthritis Macular degeneration Incontinence Rectocele Family History Medical History Relation Name Comments Diabetes Father Heart failure Father Congestive hea rt failure; Stroke Father Heart attack Maternal Grandmother Heart attack Mother Heart disease Mother Heart disease; Stroke Mother Cancer Sister Cancer, unknown ; Relation Name Status Comments Father (Age 80) Maternal Grandmother Mother Sister Social History Tobacco Use Types Packs/Day Years Used Date Smoking Tobacco: Never Smokeless Tobacco: Never Tobacco Cessation:Counseling Given: Not Answered Alcohol Use Standard Drinks/Week Comments Yes 0 (1 standard drink = 0.6 oz pur e alcohol) rarely Humiliation, Afraid, Rape, and Kick questionnair e Answer Date Recorded Within the last year, have y ou been afraid of your partner or ex-partner? No 08/25/2020 Within the last year, have y ou been humiliated or emotionally abused in other ways by your partner or ex-partner? No Within the last year, have y ou been kicked, hit, slapped, or otherwise physically hurt by your partner or ex-partner? No 08/25/2020 Within the last year, have y ou been raped or forced to have any kind of sexual activity by your partner or ex-partner? No 08/25/2020 Social Connection and Isolat ion Panel [NHANES] Answer Date Recorded In a typical week, how many times do you talk on the phone with family, friends, or neighbors? More than three times a week 08/25/2020 How often do you get togethe r with friends or relatives? More than three times a week 08/25/2020 Attends [employer] Services Not on file 08/25 Do you belong to any clubs o r organizations such as pentecostalism groups, unions, fraternal or athletic groups, or school groups? No 08/25/2020 How often do you attend meet ings of the clubs or organizations you belong to? Never 08/25/2020 Are you , , di vorced, , never , or living with a partner? 08/25/2020 Overall Financial Resource Strain (CARDIA) Answe r Date Recorded How hard is it for you to pa y for the very basics like food, housing, medical care, and heating? Not very hard 08/25/2020 Hunger Vital Sign Answer Date Recorded Within the past 12 months, y ou worried that your food would run out before you got the money to buy more. Never true 08/25/20 20 Within the past 12 months, t he food you bought just didn't last and you didn't have money to get more. Never true 08/25/2020 PRAPARE - Transportation Answer Date Re corded In the past 12 months, has l ack of transportation kept you from medical appointments or from getting medications? No 08/06 In the past 12 months, has l ack of transportation kept you from meetings, work, or from getting things needed for daily living? No 08/25/2020 Comments Unknown Sex and Gender Information Value Date Recorded Sex Assigned at Not on file Legal Sex Female 1:44 PM SPORTS ANALYST Gender Identity Not on file Sexual Orientation Not on file Obstetrics History Last Filed Vital Signs Vital Sign Reading Time Taken Comments Blood Pressure 160/64 10/31/2024 9:30 AM SPORTS ANALYST Pulse 56 10/31/2024 9:30 AM SPORTS ANALYST Temperature 36.7 C (98 F) 12/30/2020 11:48 AM CDT Respiratory Rate 14 12/30/2020 11:48 AM CDT Oxygen Saturation 96% 10/31/2024 9:30 AM SPORTS ANALYST Inhaled Oxygen Concentration - - Weight 64.4 kg (142 lb) 10/31/2024 9:30 AM SPORTS ANALYST Height 149.9 cm (4' 11 ) 10/31/2024 9:30 AM SPORTS ANALYST Body Mass Index 28.68 10/31/2024 9:30 AM SPORTS ANALYST Plan of Treatment Health Maintenance Due Date Last Done Comments Depression Screening 1935 Hepatitis B Screening 1955 Zoster Vaccine (1 of 2) 1987 Well Visit 65+ 2002 Fall Risk Assessment 08/26/2021 08/26/2020 Influenza Vaccine (Season Ended) 2025 08/11/20 16 DTaP/Tdap/Td Vaccine (2 - Td or Tdap) 06/30/2025, 06/28/2005 Pneumococcal vaccine 65+ Completed 016, 09/05/2015, 09/05/2011 Insurance MEDICARE [facility]LY [facility] MEDICARE [facility] MEDICARE ADVANTAGE [facility] MEDICARE Address: [facility] [address] [place] [address] Advance Directives For more information, please contact: [phone] * Full Code (Latest Code Status on File) Date Activated Date Inactivated Comments 08/20/2020 2:39 PM 08/26/2020 7:06 PM Care Teams Rug Layer Relationship Specialty Start Date End Date Brianna Berkowitz MD PCP - General Family Practice 06/30/20 Hernan Ham MD [address] [address] Consulting Physician Cardiology 08/26/20 Jaquan Eldirdge MD [address] [address] Surgeon Cardiothoracic Surgery 08/26/20
--- OUTSIDE RECORDS SUMMARY | 2024-12-20 12:54 | XMS_ITS | Clinical Summary ---
Author Organization [facility] Address [address] [place] [address] Care Team Providers Care Supervisor Asbestos Removal Name Role Phone Gilmar Deshpande MD Primary Care Provider [phone] Social History Tobacco Use Types Packs/Day Years Used Date Smoking Tobacco: Never Assessed Comments Unknown Sex and Gender Information Value Date Recorded Sex Assigned at Not on file Legal Sex Female 8:17 PM CDT Gender Identity Not on file Sexual Orientation Not on file Plan of Treatment Health Maintenance Due Date Last Done Comments DTaP, Tdap and Td Vaccines ( 1 - Tdap) 1956 Zoster Vaccines (1 of 2) 1987 Pneumococcal Vaccine: 50+ Ye ars (1 of 1 - PCV) 2002 RSV Immunization or 60+ Years (1 - 1-dose 75+ series) 2012 COVID-19 Vaccine ( - 2023-2 5 season) 2024 Meningococcal B Vaccine Aged Out No l onger eligible based on patient's age to complete this topic Meningococcal Vaccine Aged Out No russ zackary eligible based on patient's age to complete this topic RSV Immunizations Under 20 Months Aged Out No longer eligible based on patient's age to complete this topic Care Teams Supervisor Asbestos Removal Relationship Specialty Start Date End Date Gilmar Deshpande MD [address] [place] [id number] PCP - General 06/22/16
--- OUTSIDE RECORDS SUMMARY | 2024-12-20 12:54 | XMS_ITS | Clinical Summary ---
Author Organization [facility] [employer] Address [address] [facility] [place] [address] Care Team Providers Care Operator And Truck Driver Name Role Phone Unavailable Primary Care Provider Unavailabl e Source Comments [facility] [employer],non-owned Affiliates and Associated Physician Practices is amultiple site organization consisting of ambulatory clinics and hospital sitesin [place], [place], [place] and [place]. This disclosure is being madepursuant to the Care Everywhere program and may not contain all information available regarding this patient. Last updated 18.[facility] [employer] Allergies Active Allergy Reactions Criticality Noted Date Comments Clarithromycin Unknown 12/22/2022 Levofloxacin Unknown 12/22/2022 Metronidazole Unknown 12/22/2022 Nystatin Unknown 12/22/2022 Immunizations Immunization Administration Dates Next Due TDAP (7yrs+) 12/22/2022(Deferred: See Comment s - Administered at OSH) Social History Tobacco Use Types Packs/Day Years Used Date Smoking Tobacco: Never Smokeless Tobacco: Never Tobacco Cessation:Counseling Given: Not Answered Alcohol Use Standard Drinks/Week Comments Never 0 (1 standard drink = 0.6 oz pur e alcohol) AUDIT-C Answer Date Recorded Q1: How often do you have a drink containing alcohol? Never 12/22/2022 Q2: How many drinks containi ng alcohol do you have on a typical day when you are drinking? Patient does not drink Q3: How often do you have si x or more drinks on one occasion? Never 12/22/2022 Comments Unknown Sex and Gender Information Value Date Recorded Sex Assigned at Not on file Legal Sex Female 5:57 PM DOOR MACHINE OPERATOR Gender Identity Not on file Sexual Orientation Not on file Last Filed Vital Signs Vital Sign Reading Time Taken Comments Blood Pressure 164/65 12/22/2022 9:00 AM CDT Pulse 75 12/22/2022 9:00 AM CDT Temperature 37.1 C (98.8 F) 12/22/2022 6:13 AM CDT Respiratory Rate 13 12/22/2022 9:00 AM CDT Oxygen Saturation 96% 12/22/2022 9:00 AM CDT Inhaled Oxygen Concentration - - Weight 54.9 kg (121 lb) 12/22/2022 6:13 AM CDT Height 147.3 cm (4' 10 ) 12/22/2022 6:13 AM CDT Body Mass Index 25.29 12/22/2022 6:13 AM CDT Plan of Treatment Health Maintenance Due Date Last Done Comments BONE DENSITY TESTING 1935 MEDICARE AWV 12 MONTHS 1935 DTAP/TDAP/TD VACCINES (1 - Tdap) 1956 PNEUMOCOCCAL VACCINE 50+ (1 of 1 - PCV) 1987 ZOSTER VACCINE (1 of 2) 1987 Respiratory Syncytial Virus (RSV) Vaccine Pt: or over 60 yrs (1 - 1-dose 75+ series) 2012 COVID-19 VACCINE ( season) 2024 07/09/2022, 03/13/2022, 08/06/2021, Additional history exists DEPRESSION SCREENING 09/05/2024 INFLUENZA VACCINE (Season Ended) 2025 07/09/2022, 09/01/2021, 07/25/2020 HEPATITIS B VACCINE Aged Out No longe r eligible based on patient's age to complete this topic HIB VACCINE Aged Out No longer eligi ble based on patient's age to complete this topic HPV VACCINE Aged Out No longer eligi ble based on patient's age to complete this topic MENINGOCOCCAL (Group B) VACCINE SHARED DECISION-MAKING Aged Out No longer eligible based on patient's age to complete this topic MENINGOCOCCAL GROUPS A/C/Y/W VACCINE Aged Out No longer eligible based on patient's age to complete this topic Insurance MEDICARE ANTHEM MEDICARE ANTHEM
--- OUTSIDE RECORDS SUMMARY | 2024-12-20 12:54 | XMS_ITS | Referral Summary ---
Author Organization [facility] [address] [place] [address] Address [address] [facility] [address] [place] [address] Care Team Providers Care International Marketing Manager Name Role Phone Brianna Berkowitz MD Primary Care Provider Hernan Ham MD Unavailable [phone] Jaquan Eldridge MD Unavailable [phone] Encounters Date Type Department Care Team Description 12/17/2024 Telephone [facility] Cardiology [address] [facility] [address] [place] [address] Marino Hsu MD 10/31/2024 9:30 AM RECREATION ACTIVITIES COORDINATOR Office Visit [facility] Cardiology [address] [place] [address] [address] [place] [address] Dena Jackson NP Left-sided weakness (Primary Dx); Essential hypertension; Coronary artery disease involving [place] coronary artery of [place] heart without angina pectoris from Last 3 Months Allergies Active Allergy Reactions Criticality Noted Date [...] evening 0 0 08/21/20 15 Active multivit-minera g-atlf-slccmh (CENTRUM SILVER ULTRA WOMEN'S) tablet 0 0 [...] every 6 (six) hours 30 tablet 08/26/20 20 Active Additional Information Patient taking differently:650 mg oralAs needed, Reported on 10/31/2024 lutein-zeaxanth in 25-5 mg capsule Take by mouth Ocuvite Active glucosamine-cho ndroitin 500-400 mg tablet Take 1 tablet by mouth 3 (three) times a day Active cholecalciferol (VITAMIN D-3) 2000 unit capsule 1 capsule (2,000 Units total) Active vozrm-ul-5-dha- xut-hncwojp-hfn [id number] mg capsule Take by mouth Activ e [...] 20 mg tabletIndicatio ns:Coronary artery disease of [place] artery of [place] heart with stable angina pectoris TAKE 1 [...] right 12/15/2020 Coronary artery disease invo lving [place] heart without angina pectoris 07/29/2020 Overview (07/29/2020): Added automatically from request for surgery [id number] 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 [place] heart with stable angina pectoris 07/23/2020 Chest heaviness 06/30/2020 CRAIG (dyspnea on exertion) 06/30/2020 Atypical chest pain 08/04/2016 Overview (12/10/2016): Atypical chest pain Essential hypertension 08/21/2015 Overview (12/10/2016): Essential hypertension Systolic ejection murmur 08/21/2015 Overview (12/10/2016): Aortic ejection murmur Hyperlipidemia LDL goal <70 08/21/2015 Overview (12/10/2016): Hyperlipidemia LDL goal <100 Palpitations 08/21/2015 Overview (12/10/2016): Palpitations Social History Tobacco Use Types Packs/Day Years [...] than three times a week 08/25/2020 Attends [facility] Not on file 08/25 Do you belong to any clubs o r organizations such as christian groups, unions, fraternal or athletic groups, or [...] on file Legal Sex Female 1:44 PM RECREATION ACTIVITIES COORDINATOR Gender Identity Not on file Sexual Orientation Not on file Last Filed Vital Signs Vital Sign Reading Time Taken Comments Blood Pressure 160/64 10/31/2024 9:30 AM RECREATION ACTIVITIES COORDINATOR Pulse 56 10/31/2024 9:30 AM RECREATION ACTIVITIES COORDINATOR Temperature 36.7 C (98 F) 12/30/2020 11:48 AM CDT Respiratory Rate 14 12/30/2020 11:48 AM CDT Oxygen Saturation 96% 10/31/2024 9:30 AM RECREATION ACTIVITIES COORDINATOR Inhaled Oxygen Concentration - - Weight 64.4 kg (142 lb) 10/31/2024 9:30 AM RECREATION ACTIVITIES COORDINATOR Height 149.9 cm (4' 11 ) 10/31/2024 9:30 AM RECREATION ACTIVITIES COORDINATOR Body Mass Index 28.68 10/31/2024 9:30 AM RECREATION ACTIVITIES COORDINATOR Plan of Treatment Not on file Insurance MEDICARE [facility]Xelate [facility] MEDICARE [facility] MEDICARE ADVANTAGE Advance Directives For more information, please contact: [phone] * Full Code (Latest Code Status on File) Date Activated Date Inactivated Comments 08/20/2020 2:39 PM 08/26/2020 7:06 PM Care Teams International Marketing Manager Relationship Specialty Start Date End Date Brianna Berkowitz MD PCP - General Family Practice 06/30/20 Hernan Ham MD [address] [place] [phone] Consulting Physician Cardiology 08/26/20 Jaquan Eldridge MD [address] [place] [address] Surgeon Cardiothoracic Surgery 08/26/20
--- OUTSIDE RECORDS SUMMARY | 2024-12-20 12:54 | XMS_ITS | Encounter Summary ---
Author Organization [facility] Address [address] [facility] [address] [place] [address] Care Team Providers Care Magnet Placer Name Role Phone Gilamr Deshpande MD Primary Care Provider [phone] Brianna Berkowitz MD Primary Care Provider Hernan Ham MD Unavailable [phone] Jaquan Eldridge MD Unavailable [phone] Encounter Details Date Type Department Care Team (Late st Contact Info) Description 10/07/2016 Orders Only [facility] ProviderQamar MD [address] [place] [address] Social History Tobacco Use Types Packs/Day Years Used Date Smoking Tobacco: Never Alcohol Use Standard Drinks/Week Comments Yes 0 (1 standard drink = 0.6 oz pur e alcohol) Comments Unknown Sex and Gender Information Value Date Recorded Sex Assigned at Not on file Legal Sex Female 1:44 PM MOLDER LABELS Gender Identity Not on file Sexual Orientation Not on file documented as of this encounter Plan of Treatment Not on file documented as of this encounter Procedures Procedure Name Priority Date/Time Associated Diagnosis Comments CARDIOLOGY REPORT 10/07/2016 documented in this encounter Results * CARDIOLOGY REPORT (10/07/2016) Anatomical Region Laterality Modality Other Narrative 10/07/2016 Ordered by an unspecified provider. Historical Provider [facility] Final Result documented in this encounter Visit Diagnoses Not on filedocumented in this encounter Additional Health Concerns Infection Onset Date Last Indicated Resolved Time Diarrhea 08/23/2020 08/23/2020 09/06/2020 3:06 AM MOLDER LABELS documented as of this encounter Care Teams Magnet Placer Relationship Specialty Start Date End Date Gilmar Deshpande MD [address] [facility] [place] [address] PCP - General 09/02/15 06/29/20 Brianna Berkowitz MD [address] [place] [address] PCP - General Family Practice 06/30/20 Hernan Ham MD [address] [phone] Consulting Physician Cardiology 08/26/20 Jaquan Eldridge MD [address] [address] Surgeon Cardiothoracic Surgery 08/26/20 documented as of this encounter
[2024-12-20 19:22] LABS: Basophils Absolute Auto 0.1 K/mm3 (0.0-0.1); Eosinophils Absolute Auto 0.1 K/mm3 (0-0.3); Eosinophils Percent Auto 1.6 % (0-4.4); Hematocrit 40.1 % (37.0-47.0); Hemoglobin 13.3 g/dL (12.0-15.0); Immature Granulocyte Absolute 0.01 K/mm3 (0.00-0.031); Immature Granulocyte Percent A 0.2 % (0-0.5); Lymphocytes Absolute Auto 1.37 K/mm3 (0.9-3.2); Lymphocytes Percent Auto 27.4 % (18.3-44.2); Mean Corpuscular HGB Conc 33.2 g/dl (32-36); Mean Corpuscular Hemoglobin 32.2 pg (26-34); Mean Corpuscular Volume 97.1 fl (80-100); Mean Platelet Volume 10.6 fl (7.4-10.4); Monocytes Absolute Auto 0.4 K/mm3 (0.1-0.6); Monocytes Percent Auto 8.2 % (2.6-8.5); Neutrophils Absolute Auto 3.1 K/mm3 (1.3-6.7); Neutrophils Percent Auto 61.6 % (45.5-73.1); Platelet Count Result 263 k/mm3 (150-375); Red Blood Count 4.13 M/mm3 (4.2-5.4); Red Cell Distribution Width 13.1 % (11.5-14.5)
[2024-12-20 19:41] LABS: Alanine Aminotransferase 24 U/L (6-35); Albumin Level 4.5 g/dL (3.5-5.1); Alkaline Phosphatase 64 U/L (38-126); Anion Gap 7 mmol/L (4-12); Aspartate Amino Transferase 64 U/L (14-36); Bilirubin,Total 0.6 mg/dL (0.2-1.3); Blood Urea Nitrogen 20 mg/dL (7-17); Calcium 9.6 mg/dL (8.4-10.2); Carbon Dioxide 30 mmol/L (22-30); Chloride 100 mmol/L (98-107); Cholesterol 175 mg/dL (0-200); Estimated Glomerular Filt Rate > 60; Glucose 88 mg/dL (65-110); HDL Direct 56 mg/dL; Potassium 4.7 mmol/L (3.4-5.0); Sodium 137 mmol/L (137-145); Triglycerides 128 mg/dL (<150)
[2024-12-20 19:52] LABS: LDL Cholesterol Direct 77 mg/dL
[2024-12-20 20:44] LABS: Hemoglobin A1C 5.6 % (<5.7)
== END 2024-12-20 12:42 | disposition home or self-care (01) ==
LOC: ANHGOSHLAB 12:42
PROVIDERS: PCP Family Medicine; Visit Provider Nurse Practitioner Family
DX: E11.9 Type 2 diabetes mellitus without complications (principal); I10 Essential (primary) hypertension; E78.5 Hyperlipidemia, unspecified
CPT/HCPCS: 36415; 80053; 80061; 83036; 85025

== ENCOUNTER 2024-12-20 17:39 | Emergency (ER) | payer MEDICARE, SELFPAY ==
--- NOTE | ~2024-12-20 | CT_ITS ---
CTA brain carotid Ordering provider: Price Carrion MD History: . TIA . comparison: December 22, 2022 Technique: CT angiogram head and neck was performed following timed intravenous injection of contrast . Thin slice axial images and reformatted coronal images were obtained. Three dimensional reformatted images of the brain were also obtained using a [email or web address] workstation. Radiation reduction technique ut ilized.The dose-length product was 1619.56 mGy-cm. 100 mL Omnipaque 350 was given IV. 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 --INTERNAL CAROTID ARTERIES: Mild atheromatous disease but no significant stenosis. No occlusion. --BASILAR ARTERY AND BRANCHES: Normal caliber and contour. No atheromatous disease. 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 --ANEURYSM: None visualized. --BRAIN: Brain atrophy with deep white matter ischemic changes. Old lacunar infarct in the left basal ganglia. --BONES AND SUPERFICIAL SOFT TISSUES: Normal. --PARANASAL SINUSES AND MASTOIDS: Well aerated. NECK: --RIGHT CERVICAL CAROTID SYSTEM: Normal caliber and contour. Percent stenosis per NASCET criteria is 0%. No carotid dissection. Otherwise, no significant atheromatous disease or stenosis of the cervica l carotid system. --LEFT CERVICAL CAROTID SYSTEM: Mild atheromatous disease of the carotid bulb and proximal internal c arotid artery without significant stenosis. Percent stenosis per NASCET criteria is 10%. No carotid dissection. Otherwise, no significant atheromatous disease or stenosis of the cervical carotid system. --VERTEBRAL ARTERIES: Normal caliber and contour. --VISUALIZED AORTIC ARCH AND BRANCHING VESSELS: Mild atheromatous disease but no significant stenosis . --SOFT TISSUES: Normal. --CERVICAL SPINE: Age appropriate degenerative changes. IMPRESSION: 1. 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 2. 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 3. CTA neck. Percent stenosis per NASCET criteria is 10% on the left side. Dr. Carrion was notified with the result of the patient at 9:10 PM on December 20, 2024 Reviewed, dictated and finalized at location A. IMPRESSION: 1. 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 2. 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 3. CTA neck. Percent stenosis per NASCET criteria is 10% on the left side. Dr. Carrion was notified with the result of the patient at 9:10 PM on December
--- NOTE | ~2024-12-20 | XR_ITS ---
XR chest 1V portable Ordering provider: Prema Yan MD History: 89 years Female with . pacemaker eval . Comparison: October 16, 2020 FINDINGS: MEDIASTINUM: The cardiac silhouette is not enlarged. Postoperative changes in the mediastinum. LUNGS: No effusions or pneumothorax. Prominent markings in the lower lobes with interstitial thickeni ng which may indicate fibrotic changes. Superimposed pneumonitis is not excluded. OTHER: No free air under the diaphragm. Dextroscoliosis. Degenerative the spine. IMPRESSION: Bilateral basal fibrotic changes with possible superimposed pneumonitis. Clinical correlation advised . Reviewed, dictated and finalized at location A. IMPRESSION: Bilateral basal fibrotic changes with possible superimposed pneumonitis. Clinic al correlation advised.
[2024-12-20 17:47] VITALS: BP 180/64; PULSE 64; RESP 15; TEMP 36.6; O2SAT 100
--- NOTE | 2024-12-20 17:59 | ECG_ITS ---
Test Date: 2024-12-20 18:18:45 Measurements Intervals [place] Rate: 57 P: 38 UT: 170 QRS: -5 QRSD: 141 T: 4 QT: 440 QTc: 431 Interpretive Statements SINUS BRADYCARDIA POSSIBLE LEFT ATRIAL ENLARGEMENT RIGHT BUNDLE BRANCH BLOCK BASELINE ARTIFACT- I, II, III, AVL, AVF ABNORMAL ECG No previous ECG available for comparison Electronically Signed On 12-20-2024 20:09:24 CDT by Luis Tanner D.O.
[2024-12-20 18:07] LABS: Glucose Point of Care 88 mg/dl (65-105)
[2024-12-20 18:19] LABS: Basophils Absolute Auto 0.1 K/mm3 (0.0-0.1); Basophils Percent Auto 0.8 % (0.2-1.2); Eosinophils Absolute Auto 0.1 K/mm3 (0-0.3); Eosinophils Percent Auto 1.3 % (0-4.4); Hematocrit 38.3 % (37.0-47.0); Hemoglobin 12.5 g/dL (12.0-15.0); Immature Granulocyte Absolute 0.01 K/mm3 (0.00-0.031); Immature Granulocyte Percent A 0.2 % (0-0.5); Lymphocytes Absolute Auto 1.56 K/mm3 (0.9-3.2); Lymphocytes Percent Auto 25.1 % (18.3-44.2); Mean Corpuscular HGB Conc 32.6 g/dl (32-36); Mean Corpuscular Hemoglobin 31.6 pg (26-34); Mean Corpuscular Volume 96.7 fl (80-100); Mean Platelet Volume 10.2 fl (7.4-10.4); Monocytes Absolute Auto 0.6 K/mm3 (0.1-0.6); Monocytes Percent Auto 9.6 % (2.6-8.5); Neutrophils Absolute Auto 3.9 K/mm3 (1.3-6.7); Platelet Count Result 248 k/mm3 (150-375); Red Blood Count 3.96 M/mm3 (4.2-5.4); Red Cell Distribution Width 12.8 % (11.5-14.5); White Blood Count 6.2 K/mm3 (4.5-10.0)
[2024-12-20 18:29] LABS: Alanine Aminotransferase 24 U/L (6-35); Albumin Level 4.5 g/dL (3.5-5.1); Alkaline Phosphatase 72 U/L (38-126); Anion Gap 9 mmol/L (4-12); Aspartate Amino Transferase 30 U/L (14-36); Bilirubin,Total 0.6 mg/dL (0.2-1.3); Blood Urea Nitrogen 20 mg/dL (7-17); Calcium 9.7 mg/dL (8.4-10.2); Carbon Dioxide 24 mmol/L (22-30); Chloride 100 mmol/L (98-107); Estimated Glomerular Filt Rate > 60; Glucose 96 mg/dL (65-110); Magnesium 2.1 mg/dL (1.6-2.3); Potassium 4.3 mmol/L (3.4-5.0); Prothrombin Time 13.8 Seconds (11.1-14.7); Sodium 133 mmol/L (137-145)
[2024-12-20 18:30] LABS: Partial Thromboplastin Time 24.2 Seconds (22.3-36.8)
--- OUTSIDE RECORDS SUMMARY | 2024-12-20 18:55 | XMS_ITS | Clinical Summary ---
Author Organization [facility] Address [address] [place] [address] Care Team Providers Care Glass Pulverizer Equipment Operator Name Role Phone Gilmar Deshpande MD Primary Care Provider [phone] Social History Tobacco Use Types Packs/Day Years [...] age to complete this topic Care Teams Glass Pulverizer Equipment Operator Relationship Specialty Start Date End Date Gilmar Deshpande MD [address] [place] [id number] PCP - General 06/22/16
--- OUTSIDE RECORDS SUMMARY | 2024-12-20 18:55 | XMS_ITS | Referral Summary ---
Author Organization [facility] [place] [address] [place] [address] Address [address] [place] [address] Care Team Providers Care Electrical Tester Battery Name Role Phone Brianna Berkowitz MD Primary Care Provider Hernan Ham MD Unavailable [phone] Jaquan Eldridge MD Unavailable [phone] Encounters Date Type Department Care Team Description 12/17/2024 Telephone [facility] Cardiology [address] [place] [address] Marino Hsu MD 10/31/2024 9:30 AM SEMICONDUCTOR PROCESSOR Office Visit [facility] Cardiology [address] [place] [address] [address] [place] [address] Dena Jackson NP Left-sided weakness (Primary Dx); Essential hypertension; Coronary artery disease involving salamatof coronary artery of salamatof heart without angina pectoris from Last 3 [...] evening 0 0 08/21/20 15 Active multivit-minera h-qgdh-stccgg (CENTRUM SILVER ULTRA WOMEN'S) tablet 0 0 [...] capsule 1 capsule (2,000 Units total) Active whbrr-ta-5-dha- htp-udxfyrq-boa 839-176-29-75 mg capsule Take by mouth Activ e [...] 20 mg tabletIndicatio ns:Coronary artery disease of salamatof artery of salamatof heart with stable angina pectoris TAKE 1 [...] right 12/15/2020 Coronary artery disease invo lving salamatof heart without angina pectoris 07/29/2020 Overview (07/29/2020): Added automatically from request for surgery [id number] 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 salamatof heart with stable angina pectoris 07/23/2020 Chest [...] than three times a week 08/25/2020 Attends [employer] Services Not on file 08/25 Do you belong to any clubs o r organizations such as gnosticism groups, unions, fraternal or athletic groups, or [...] on file Legal Sex Female 1:44 PM SEMICONDUCTOR PROCESSOR Gender Identity Not on file Sexual Orientation Not on file Last Filed Vital Signs Vital Sign Reading Time Taken Comments Blood Pressure 160/64 10/31/2024 9:30 AM SEMICONDUCTOR PROCESSOR Pulse 56 10/31/2024 9:30 AM SEMICONDUCTOR PROCESSOR Temperature 36.7 C (98 F) 12/30/2020 11:48 AM CDT Respiratory Rate 14 12/30/2020 11:48 AM CDT Oxygen Saturation 96% 10/31/2024 9:30 AM SEMICONDUCTOR PROCESSOR Inhaled Oxygen Concentration - - Weight 64.4 kg (142 lb) 10/31/2024 9:30 AM SEMICONDUCTOR PROCESSOR Height 149.9 cm (4' 11 ) 10/31/2024 9:30 AM SEMICONDUCTOR PROCESSOR Body Mass Index 28.68 10/31/2024 9:30 AM SEMICONDUCTOR PROCESSOR Plan of Treatment Not [place] [address] [facility] [facility] MEDICARE ADVANTAGE Advance Directives For more information, please contact: [phone] * Full Code (Latest Code Status on File) Date Activated Date Inactivated Comments 08/20/2020 2:39 PM 08/26/2020 7:06 PM Care Teams Electrical Tester Battery Relationship Specialty Start Date End Date Brianna Berkowitz MD PCP - General Family Practice 06/30/20 Hernan Ham MD [address] [place] [address] [phone] Consulting Physician Cardiology 08/26/20 Jaquan Eldridge MD [address] [place] [id number] Surgeon Cardiothoracic Surgery 08/26/20
--- OUTSIDE RECORDS SUMMARY | 2024-12-20 18:55 | XMS_ITS | Encounter Summary ---
Author Organization [facility] Address [address] [place] [address] Care Team Providers Care Patrol Agent Name Role Phone Gilmar Deshpande MD Primary Care Provider [phone] Brianna Berkowitz MD Primary Care Provider Hernan Ham MD Unavailable [phone] Jaquan Eldridge MD Unavailable [phone] Encounter Details Date Type Department Care Team (Late st Contact Info) Description 10/07/2016 Orders Only [facility] ProviderQamar MD [address] [place] [id number] Social History Tobacco Use Types Packs/Day Years Used Date Smoking Tobacco: Never Alcohol Use Standard Drinks/Week Comments Yes 0 (1 standard drink = 0.6 oz pur e alcohol) Comments Unknown Sex and Gender Information Value Date Recorded Sex Assigned at Not on file Legal Sex 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 Gender Identity Not on file Sexual Orientation [...] Time Diarrhea 08/23/2020 08/23/2020 09/06/2020 3:06 AM ANDROID SOFTWARE ENGINEER documented as of this encounter Care Teams Patrol Agent Relationship Specialty Start Date End Date Gilmar Deshpande MD [address] [place] [address] PCP - General 09/02/15 06/29/20 Brianna Berkowitz MD [address] [place] [address] PCP - General Family Practice 06/30/20 Hernan Ham MD [address] [phone] Consulting Physician Cardiology 08/26/20 Jaquan Eldridge MD [address] [address] Surgeon Cardiothoracic Surgery 08/26/20 documented as of this encounter
--- OUTSIDE RECORDS SUMMARY | 2024-12-20 18:55 | XMS_ITS | Clinical Summary ---
Author Organization [facility] [place] [address] [facility] [address] [place] [address] Care Team Providers Care Audio Technician Name Role Phone Brianna Berkowitz MD Primary Care Provider Hernan Ham MD Unavailable [phone] Jaquan Eldridge MD Unavailable [phone] Allergies Active Allergy Reactions Criticality Noted Date [...] evening 0 0 08/21/20 15 Active multivit-minera h-okmw-sysarx (CENTRUM SILVER ULTRA WOMEN'S) tablet 0 0 [...] capsule 1 capsule (2,000 Units total) Active tpeqe-dx-3-dha- oai-qjltwdc-iek 392-733-00-75 mg capsule Take by mouth Activ e [...] 20 mg tabletIndicatio ns: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 Cardiology [address] [place] [phone] Marino Hsu MD 10/31/2024 9:30 AM FRESH WORK INSPECTOR Office Visit [facility] Cardiology [address] [place] [address] Dena Jackson NP Left-sided weakness (Primary Dx); Essential hypertension; Coronary artery disease involving nightmute coronary artery of nightmute heart without angina pectoris from Last 3 [...] than three times a week 08/25/2020 Attends [employer] Services Not on file 08/25 Do you belong to any clubs o r organizations such as mosque groups, unions, fraternal or athletic groups, or [...] on file Legal Sex Female 1:44 PM FRESH WORK INSPECTOR Gender Identity Not on file Sexual Orientation Not on file Obstetrics History Last Filed Vital Signs Vital Sign Reading Time Taken Comments Blood Pressure 160/64 10/31/2024 9:30 AM FRESH WORK INSPECTOR Pulse 56 10/31/2024 9:30 AM FRESH WORK INSPECTOR Temperature 36.7 C (98 F) 12/30/2020 11:48 AM CDT Respiratory Rate 14 12/30/2020 11:48 AM CDT Oxygen Saturation 96% 10/31/2024 9:30 AM FRESH WORK INSPECTOR Inhaled Oxygen Concentration - - Weight 64.4 kg (142 lb) 10/31/2024 9:30 AM FRESH WORK INSPECTOR Height 149.9 cm (4' 11 ) 10/31/2024 9:30 AM FRESH WORK INSPECTOR Body Mass Index 28.68 10/31/2024 9:30 AM FRESH WORK INSPECTOR Plan of Treatment Health Maintenance Due Date Last Done Comments Depression Screening 1935 Hepatitis B Screening 1953 Zoster Vaccine (1 of 2) 1987 Well Visit 65+ 2002 Fall Risk Assessment 08/26/2021 08/26/2020 Influenza Vaccine (Season Ended) 2025 08/11/20 16 DTaP/Tdap/Td Vaccine (2 - Td or Tdap) 06/30/2025, 06/28/2005 Pneumococcal vaccine 65+ Completed 016, 09/05/2015, 09/05/2011 Insurance MEDICARE [facility] MEDICARE [facility] MEDICARE [facility] Address: [facility] [address] [place] [address] Advance Directives For more information, please contact: [phone] * Full Code (Latest Code Status on File) Date Activated Date Inactivated Comments 08/20/2020 2:39 PM 08/26/2020 7:06 PM Care Teams Audio Technician Relationship Specialty Start Date End Date Brianna Berkowitz MD PCP - General Family Practice 06/30/20 Hernan Ham MD [address] [address] Consulting Physician Cardiology 08/26/20 Jaquan Eldridge MD [address] [id number] Surgeon Cardiothoracic Surgery 08/26/20
--- OUTSIDE RECORDS SUMMARY | 2024-12-20 18:55 | XMS_ITS | Clinical Summary ---
Author Organization [facility] [employer] Address [address] [facility] [place] [address] Care Team Providers Care Rubber Cutting Machine Tender Name Role Phone Unavailable Primary Care Provider Unavailabl e Source Comments [facility] [employer],non-owned Affiliates and Associated Physician Practices is amultiple site organization consisting of ambulatory clinics and hospital sitesin [place], [place], [place] and [place]. This disclosure is being madepursuant to the Care Everywhere program and may not contain all information available regarding this patient. Last updated 18.[facility] [employer] Allergies Active Allergy Reactions Criticality Noted Date [...] on file Legal Sex Female 5:57 PM CREDIT CARD CLERK Gender Identity Not on file Sexual Orientation [...]
--- NOTE | 2024-12-20 19:10 | PC.NURSE ---
Received report from HERMELINDA Gregory for continuos of care. Pt being taken to CT in stretcher by pharmacy order entry technician and on a monitor.
--- NOTE | 2024-12-20 19:16 | ED_ITS ---
HPI - General Adult General Chief complaint: Neuro Symptoms/Deficit <Price Carrion MD - Last Filed: 12/21/24 20:09> Stated complaint: neuro <Price Carrion MD - Last Filed: 12/21/24 20:09> Time Seen by Provider: 12/20/24 17:59 <Price Carrion MD - Last Filed: 12/21/24 20:09> History of Present Illness HPI narrative: 89-year-old female presented to the emergency department for evaluation for the 30 minutes for of right arm weakness and slurred speech. Patient reports that approximately 415 she had onset of right hand weakness and did drop a glass. Son states that she was having slurred speech. Symptoms resolved approximately 445. At time of evaluation patient feels she is back to her baseline denies any complaints. Patient reports that she was having short lasting TIA symptoms since September. Patient has not yet had follow-up with Neurology for this. <Price Carrion MD - Last Filed: 12/21/24 20:09> Related Data Home medications: Home Medications ?Medication ?Instructions ?Recorded ?Confirmed ?Last Taken ?Type aspirin 81 mg tablet,delayed 81 mg PO DAILY 02/05/20 11/28/24 07/10/20 History release (Aspir-) docusate sodium 50 mg capsule 50 mg PO DAILY 02/05/20 11/28/24 07/10/20 History (Stool Softener) glucosam 750 mg-chondroi 100 1 tablet PO DAILY 02/05/20 11/28/24 07/10/20 History mg-hyalur 1.65 mg-CF borate 108 mg tablet ([facility]) methylsulfonylmethane 1,000 mg 1,000 mg PO BID 02/05/20 11/28/24 07/10/20 History capsule (MSM) ohflgkilpupk-iecckeqs-ovqspx tablet 1 tablet PO DAILY 02/05/20 11/28/24 07/10/20 History psyllium husk 0.4 gram capsule 0.4 gm PO DAILY 02/05/20 11/28/24 07/10/20 History (Daily Fiber) calcium 250 mg (as phosphate)-vit 1 tablet PO DAILY 07/10/20 11/28/24 07/10/20 History D3 10 mcg (400 unit) chewable tablet clopidogrel 75 mg tablet 75 mg PO DAILY 10/16/20 11/28/24 Unknown History metoprolol tartrate 25 mg tablet 12.5 mg PO BID 02/10/21 11/28/24 Unknown History losartan 100 mg tablet 100 mg PO DAILY 03/09/22 11/28/24 Unknown History furosemide 20 mg tablet 20 mg PO DAILY PRN 03/22/23 11/28/24 Unknown History cholecalciferol (vitamin D3) 25 50 mcg PO DAILY 09/27/23 11/28/24 Unknown History mcg (1,000 unit) tablet amlodipine 2.5 mg tablet 5 mg PO DAILY 11/28/24 11/28/24 Unknown History <Price Carrion MD - Last Filed: 12/21/24 20:09> Allergies/adverse reactions: Allergies Allergy/AdvReac Type Severity Reaction Status Date / Time clarithromycin Allergy Unknown Unknown Verified 12/20/24 18:12 metronidazole Allergy Unknown Unknown Verified 12/20/24 18:12 nystatin Allergy Unknown Unknown Verified 12/20/24 18:12 LEVOFLOXICIN Allergy Unknown Unknown Uncoded 12/20/24 18:12 SULFA Allergy Unknown Unknown Uncoded 12/20/24 18:12 <Price Carrion MD - Last Filed: 12/21/24 20:09> Review of Systems 2 Review of Systems: All systems reviewed & are unremarkable except as noted in HPI and below <Pirce Carrion MD - Last Filed: 12/21/24 20:09> [facility] Past Medical History Medical History: Medical History Osteopenia CAD (coronary artery disease) Chronic neck pain Prediabetes Bilateral cataracts GERD without esophagitis Hyperlipidemia Hypertension <Price Carrion MD - Last Filed: 12/21/24 20:09> Surgical History Surgical History: Surgical History History of hysterectomy (~1982) History of cataract surgery 2019 - b/l 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 H/O knee surgery torn meniscus repair - right(2000), left(2005) <Price Carrion MD - Last Filed: 12/21/24 20:09> Family History Family History: Family History Father Diabetes mellitus Mother Hypertension Acute myocardial infarction Cerebrovascular accident <Price Carrion MD - Last Filed: 12/21/24 20:09> Social History Social History: Social History Social History: caffeine- coffee Smoking status: Never smoker Second hand tobacco smoke exposure: Yes Alcohol intake: never Substance use: never Substance use type: does not use Living arrangements: with family Occupation/Education: retired Gender identity (if verbalized by the patient): Female Spiritual care concerns: No Agree to blood products: Yes <Price Carrion MD - Last Filed: 12/21/24 20:09> Exam 2 Narrative: APPEARANCE: Well appearing, no pain, no distress, well-nourished. HEAD: normocephalic, atraumatic. EYES: PERRLA/EOMI, conjunctivae clear. NOSE: Normal no drainage EARS:TMS clear with good light reflex. THROAT: Pharynx clear, no exudate. NECK: Supple. No adenopathy, no masses. RESPIRATORY: Airway patent, respirations nonlabored. Clear to auscultation bilaterally, no rales, rhonchi, wheezing. CARDIOVASCULAR: Regular rate and rhythm without murmurs rubs or gallops. ABDOMINAL: Soft, nontender, nondistended, normal bowel sounds MUSCULOSKELETAL: Moves all extremities. Strength/ROM intact, No edema, No calf tenderness. NEURO: Alert. Cranial nerves II through XII intact. Good gait. Good coordination SKIN: Warm, dry. Normal Color <Price Carrion MD - Last Filed: 12/21/24 20:09> Course Vital Signs Vital signs: Vital Signs Temperature 97.8 F 12/20/24 17:47 Pulse Rate 64 12/20/24 17:47 Respiratory Rate 15 12/20/24 17:47 Blood Pressure 180/64 H 12/20/24 17:47 Pulse Oximetry 100 12/20/24 17:47 Oxygen Delivery Room Air 12/20/24 17:47 Temperature 97.8 F 12/20/24 17:47 Pulse Rate 98 12/20/24 23:31 Respiratory Rate 16 12/20/24 23:31 Blood Pressure 159/58 H 12/20/24 23:31 Pulse Oximetry 95 12/20/24 23:31 Oxygen Delivery Room Air 12/20/24 17:47 <Price Carrion MD - Last Filed: 12/21/24 20:09> Vital Signs Temperature 97.8 F 12/20/24 17:47 Pulse Rate 64 12/20/24 17:47 Respiratory Rate 15 12/20/24 17:47 Blood Pressure 180/64 H 12/20/24 17:47 Pulse Oximetry 100 12/20/24 17:47 Oxygen Delivery Room Air 12/20/24 17:47 Temperature 97.8 F 12/20/24 17:47 Pulse Rate 98 12/20/24 23:31 Respiratory Rate 16 12/20/24 23:31 Blood Pressure 159/58 H 12/20/24 23:31 Pulse Oximetry 95 12/20/24 23:31 Oxygen Delivery Room Air 12/20/24 17:47 <Prema Yan MD - Last Filed: 12/20/24 22:45> Medical Decision Making MDM Narrative Medical decision making narrative: 89-year-old female present to the emergency department for evaluation for symptoms of a TIA. Patient is currently back at her baseline has an NIH score of 0. Patient is currently afebrile with no leukocytosis hemoglobin of 12.5. INR is 1.0. Patient has no acute abnormalities on her CMP UA was negative for infection. 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 Patient does take Plavix and was also treated with aspirin. < Price Carrion MD - Last Filed: 12/21/24 20:09> 89-year-old female present to the emergency department for evaluation for symptoms of a TIA. Patient is currently back at her baseline has an NIH score of 0. Patient is currently afebrile with no leukocytosis hemoglobin of 12.5. INR is 1.0. Patient has no acute abnormalities on her CMP UA was negative for infection. 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 Patient does take Plavix and was also treated with aspirin. Patient was signed out to me pending admission versus transfer. Patient was informed of these findings at bedside and that we do not have neurology coverage, patient is willing to be transferred to a facility for an MRI and Neurology evaluation. Case was discussed with the on-call hospitalist Dr. Vyas at [phone] 2 recommended transferring the patient to a facility that has neurology coverage. Case discussed with the on-call neurologist at [facility] in [place] Dr. Liang who accepted consult at 2210. Transfer was accepted under medicine as a direct admit and accepting physician Dr. Valadez at [phone]. <Prema Yan MD - Last Filed: 12/20/24 22:45> Differential Diagnosis Differential Diagnosis: Stroke, ischemic versus hemorrhagic, TIA. <Prema Yan MD - Last Filed: 12/20/24 22:45> Medical Records Medical records reviewed: Yes I reviewed the external patient's medical records. <Prema Yan MD - Last Filed: 12/20/24 22:45> Vital Signs Vital Signs: Vital Signs Temperature 97.8 F 12/20/24 17:47 Pulse Rate 64 12/20/24 17:47 Respiratory Rate 15 12/20/24 17:47 Blood Pressure 180/64 H 12/20/24 17:47 Pulse Oximetry 100 12/20/24 17:47 Oxygen Delivery Room Air 12/20/24 17:47 Temperature 97.8 F 12/20/24 17:47 Pulse Rate 98 12/20/24 23:31 Respiratory Rate 16 12/20/24 23:31 Blood Pressure 159/58 H 12/20/24 23:31 Pulse Oximetry 95 12/20/24 23:31 Oxygen Delivery Room Air 12/20/24 17:47 <Price Carrion MD - Last Filed: 12/21/24 20:09> Vital Signs Temperature 97.8 F 12/20/24 17:47 Pulse Rate 64 12/20/24 17:47 Respiratory Rate 15 12/20/24 17:47 Blood Pressure 180/64 H 12/20/24 17:47 Pulse Oximetry 100 12/20/24 17:47 Oxygen Delivery Room Air 12/20/24 17:47 Temperature 97.8 F 12/20/24 17:47 Pulse Rate 98 12/20/24 23:31 Respiratory Rate 16 12/20/24 23:31 Blood Pressure 159/58 H 12/20/24 23:31 Pulse Oximetry 95 12/20/24 23:31 Oxygen Delivery Room Air 12/20/24 17:47 <Prema Yan MD - Last Filed: 12/20/24 22:45> Lab Data Lab results reviewed: Yes I reviewed the patient's lab results. <Prema Yan MD - Last Filed: 12/20/24 22:45> Result diagrams: 12/20/24 18:09 12/20/24 18:09 <Price Carrion MD - Last Filed: 12/21/24 20:09> Labs: Lab Results 12/20/24 12/20/24 12/20/24 Range/Units 18:03 18:09 19:29 WBC 6.2 (4.5-10.0) K/mm3 RBC 3.96 L (4.2-5.4) M/mm3 Hgb 12.5 (12.0-15.0) g/dL Hct 38.3 (37.0-47.0) % MCV 96.7 (80-100) fl MCH 31.6 (26-34) pg MCHC 32.6 (32-36) g/dl RDW 12.8 (11.5-14.5) % Plt Count 248 (150-375) k/mm3 MPV 10.2 (7.4-10.4) fl Immature Gran % (Auto) 0.2 (0-0.5) % Neut % (Auto) 63.0 (45.5-73.1) % Lymph % (Auto) 25.1 (18.3-44.2) % [place] % (Auto) 9.6 H (2.6-8.5) % Eos % (Auto) 1.3 (0-4.4) % Baso % (Auto) 0.8 (0.2-1.2) % Lymph # (Auto) 1.56 (0.9-3.2) K/mm3 [place] # (Auto) 0.6 (0.1-0.6) K/mm3 Eos # (Auto) 0.1 (0-0.3) K/mm3 Baso # (Auto) 0.1 (0.0-0.1) K/mm3 Abs Immat Gran (auto) 0.01 (0.00-0.031) K/mm3 Absolute Neuts (auto) 3.9 (1.3-6.7) K/mm3 Absolute Nucleated RBC 0.000 (0.0-0.012) K/mm3 Nucleated RBC % 0.0 (0.0-0.2) % PT 13.8 (11.1-14.7) Seconds INR 1.0 APTT 24.2 (22.3-36.8) Seconds Sodium 133 L (137-145) mmol/L Potassium 4.3 (3.4-5.0) mmol/L Chloride 100 (98-107) mmol/L Carbon Dioxide 24 (22-30) mmol/L Anion Gap 9 (4-12) mmol/L BUN 20 H (7-17) mg/dL Creatinine 0.73 (0.7-1.0) mg/dL Estim Creat Clear Calc Not Reportable Estimated GFR > 60 (59 - ) Glucose 96 (65-110) mg/dL POC Capillary Glucose 88 (65-105) mg/dl Calcium 9.7 (8.4-10.2) mg/dL Magnesium 2.1 (1.6-2.3) mg/dL Total Bilirubin 0.6 (0.2-1.3) mg/dL AST 30 (14-36) U/L ALT 24 (6-35) U/L Alkaline Phosphatase 72 (38-126) U/L Total Protein 7.0 (6.3-8.2) g/dL Albumin 4.5 (3.5-5.1) g/dL TSH 1.380 (0.465-4.680) uIU/mL Urine Color Yellow (Yellow) Urine Appearance Clear (Clear) Urine pH 7.0 (5.0-9.0) Ur Specific [place] 1.007 (1.001-1.035) Urine Protein Negative (Negative) mg/dL Urine Glucose (UA) Negative (Negative) mg/dL Urine Ketones Negative (Negative) mg/dL Ur Blood (Man) Negative (Negative) Urine Nitrate Negative (Negative) Urine Bilirubin Negative (Negative) Urine Urobilinogen 0.2 (<2.0) mg/dL Add Ur Microanalysis Reviewed Leukocyte Esterase Rfl 1+ H (Negative) ALEXIS/UL Urine RBC 0-2 (0-2) /hpf Urine WBC 0-5 (0-3) /hpf Ur Squamous Epith Cells None seen (Few) /hpf Urine Bacteria None seen /hpf Urine Casts 0-2 <Price Carrion MD - Last Filed: 12/21/24 20:09> Lab Results 12/20/24 12/20/24 12/20/24 Range/Units 18:03 18:09 19:29 WBC 6.2 (4.5-10.0) K/mm3 RBC 3.96 L (4.2-5.4) M/mm3 Hgb 12.5 (12.0-15.0) g/dL Hct 38.3 (37.0-47.0) % MCV 96.7 (80-100) fl MCH 31.6 (26-34) pg MCHC 32.6 (32-36) g/dl RDW 12.8 (11.5-14.5) % Plt Count 248 (150-375) k/mm3 MPV 10.2 (7.4-10.4) fl Immature Gran % (Auto) 0.2 (0-0.5) % Neut % (Auto) 63.0 (45.5-73.1) % Lymph % (Auto) 25.1 (18.3-44.2) % [place] % (Auto) 9.6 H (2.6-8.5) % Eos % (Auto) 1.3 (0-4.4) % Baso % (Auto) 0.8 (0.2-1.2) % Lymph # (Auto) 1.56 (0.9-3.2) K/mm3 [place] # (Auto) 0.6 (0.1-0.6) K/mm3 Eos # (Auto) 0.1 (0-0.3) K/mm3 Baso # (Auto) 0.1 (0.0-0.1) K/mm3 Abs Immat Gran (auto) 0.01 (0.00-0.031) K/mm3 Absolute Neuts (auto) 3.9 (1.3-6.7) K/mm3 Absolute Nucleated RBC 0.000 (0.0-0.012) K/mm3 Nucleated RBC % 0.0 (0.0-0.2) % PT 13.8 (11.1-14.7) Seconds INR 1.0 APTT 24.2 (22.3-36.8) Seconds Sodium 133 L (137-145) mmol/L Potassium 4.3 (3.4-5.0) mmol/L Chloride 100 (98-107) mmol/L Carbon Dioxide 24 (22-30) mmol/L Anion Gap 9 (4-12) mmol/L BUN 20 H (7-17) mg/dL Creatinine 0.73 (0.7-1.0) mg/dL Estim Creat Clear Calc Not Reportable Estimated GFR > 60 (59 - ) Glucose 96 (65-110) mg/dL POC Capillary Glucose 88 (65-105) mg/dl Calcium 9.7 (8.4-10.2) mg/dL Magnesium 2.1 (1.6-2.3) mg/dL Total Bilirubin 0.6 (0.2-1.3) mg/dL AST 30 (14-36) U/L ALT 24 (6-35) U/L Alkaline Phosphatase 72 (38-126) U/L Total Protein 7.0 (6.3-8.2) g/dL Albumin 4.5 (3.5-5.1) g/dL TSH 1.380 (0.465-4.680) uIU/mL Urine Color Yellow (Yellow) Urine Appearance Clear (Clear) Urine pH 7.0 (5.0-9.0) Ur Specific [place] 1.007 (1.001-1.035) Urine Protein Negative (Negative) mg/dL Urine Glucose (UA) Negative (Negative) mg/dL Urine Ketones Negative (Negative) mg/dL Ur Blood (Man) Negative (Negative) Urine Nitrate Negative (Negative) Urine Bilirubin Negative (Negative) Urine Urobilinogen 0.2 (<2.0) mg/dL Add Ur Microanalysis Reviewed Leukocyte Esterase Rfl 1+ H (Negative) ALEXIS/UL Urine RBC 0-2 (0-2) /hpf Urine WBC 0-5 (0-3) /hpf Ur Squamous Epith Cells None seen (Few) /hpf Urine Bacteria None seen /hpf Urine Casts 0-2 <Prema Yan MD - Last Filed: 12/20/24 22:45> Discharge Plan Discharge Clinical Impression: Brain TIA <Price Carrion MD - Last Filed: 12/21/24 20:09> Patient Disposition: Acute Care Hospital <Price Carrion MD - Last Filed: 12/21/24 20:09> Condition: Stable <Price Carrion MD - Last Filed: 12/21/24 20:09> Patient Language: Moldovan <Price Carrion MD - Last Filed: 12/21/24 20:09> Prescriptions: No Action ofloxacin 0.3 % drops 5 drp RIGHT EAR BID 7 Days Qty: 10 0RF aspirin [Aspir-81] 81 mg tablet,delayed release (DR/EC) 81 mg PO DAILY Stool Softener 50 mg capsule 50 mg PO DAILY iqjhcnykwrtf-muegqsud-ivnhlx Tablet 1 tablet PO DAILY [facility] 750 mg-100 mg- 1.65 mg-108 mg tablet 1 tablet PO DAILY MSM 1,000 mg capsule 1,000 mg PO BID psyllium husk [Daily Fiber] 0.4 gram capsule 0.4 gm PO DAILY cholecalciferol (vitamin D3) 25 mcg (1,000 unit) tablet 50 mcg PO DAILY diclofenac sodium 1 % gel 2 g topical BID Qty: 100 0RF clopidogrel 75 mg tablet 75 mg PO DAILY metoprolol tartrate 25 mg tablet 12.5 mg PO BID losartan 100 mg tablet 100 mg PO DAILY amlodipine 2.5 mg tablet 5 mg PO DAILY furosemide 20 mg tablet 20 mg PO DAILY PRN calcium phosphate-vitamin D3 250 mg-10 mcg (400 unit) Tablet,Chewable 1 tablet PO DAILY simvastatin 10 mg tablet 10 mg PO DAILY Qty: 90 1RF omeprazole 20 mg capsule,delayed release(DR/EC) See Rx Instructions .ROUTE .COMPLEX Qty: 90 1RF Dose Instruction: TAKE 1 CAPSULE BY MOUTH DAILY Rx Instructions: TAKE 1 CAPSULE BY MOUTH DAILY <Price Carrion MD - Last Filed: 12/21/24 20:09> Follow-up/Referrals: Leo Berkowitz MD [Primary Care Provider] - <Price Carrion MD - Last Filed: 12/21/24 20:09> Time of Disposition: 22:43 <Price Carrion MD - Last Filed: 12/21/24 20:09> 22:43 <Prema Yan MD - Last Filed: 12/20/24 22:45> Quality Stroke Date of last known normal: 12/20/24 <Price Carrion MD - Last Filed: 12/21/24 20:09> Time of last known normal: 21:47 <Price Carrion MD - Last Filed: 12/21/24 20:09> Stroke Scale Stroke Scale 1: Stroke scale date:: 04/17/25 <Price Carrion MD - Last Filed: 12/21/24 20:09> Stroke scale time:: 21:47 <Price Carrion MD - Last Filed: 12/21/24 20:09> 1a Level of consciousness: alert-0 <Price Carrion MD - Last Filed: 12/21/24 20:09> 1b Level of consciousness questions: answers both correctly-0 <Price Carrion MD - Last Filed: 12/21/24 20:09> 1c Level of consciousness commands: obeys both correctly-0 <Price Carrion MD - Last Filed: 12/21/24 20:09> 2 Best gaze: normal-0 <Price Carrion MD - Last Filed: 12/21/24 20:09> 3 Visual: no visual loss-0 <Price Carrion MD - Last Filed: 12/21/24 20:09> 4 Facial palsy: normal-0 <Price Carrion MD - Last Filed: 12/21/24 20:09> 5a Motor: left arm: no drift-0 <Price Carrion MD - Last Filed: 12/21/24 20:09> 5b Motor: right arm: no drift-0 <Price Carrion MD - Last Filed: 12/21/24 20:09> 6a Motor: left leg: no drift-0 <Price Carrion MD - Last Filed: 12/21/24 20:09> 6b Motor: right leg: no drift-0 <Price Carrion MD - Last Filed: 12/21/24 20:09> 7 Limb ataxia: absent-0 <Price Carrion MD - Last Filed: 12/21/24 20:09> 8 Sensory: normal-0 <Price Carrion MD - Last Filed: 12/21/24 20:09> 9 Best language: no aphasia-0 <Price Carrion MD - Last Filed: 12/21/24 20:09> 10 Dysarthria: normal-0 <Price Carrion MD - Last Filed: 12/21/24 20:09> 11 Extinction and inattention: no abnormality-0 <Price Carrion MD - Last Filed: 12/21/24 20:09> Level:: 0 <Priec Carrion MD - Last Filed: 12/21/24 20:09> 0 <Prema Yan MD - Last Filed: 12/20/24 22:45>
[2024-12-20 19:40] VITALS: BP 121/91; PULSE 88; RESP 16; O2SAT 99
[2024-12-20 19:45] LABS: Add Urine Microscopic? YES; Appearance Urine Clear (Clear); Bacteria Urine None Seen /hpf; Bilirubin Urine Negative (Negative); Blood Urine Negative (Negative); Color Urine Yellow (Yellow); Glucose Urine UA Negative (Negative); Ketones Urine Negative (Negative); Leukocyte Esterase Ur 1+ LEU/UL (Negative); Need Manual Microscopic Reviewed; Nitrate Urine Negative (Negative); Non Pathogenic Casts 0-2; Protein Urine Negative (Negative); RBC Urine 0-2 /hpf (0-2); Specific Grav Ur 1.007 (1.001-1.035); Squamous Epithelial Cell Urine None Seen /hpf (Few); Urobilinogen Urine 0.2 mg/dL (<2.0); WBC Urine 0-5 /hpf (0-3)
[2024-12-20] MEDS: ASPIRIN 81 MG CHEWABLE TABLET 324 MG PO (21:57)
--- NOTE | 2024-12-20 22:35 | PC.NURSE ---
Pt is accepted to [facility] off [facility]. RN to RN Report [phone] Neuro Floor [address] Randall Valadez Please send a disk and chart with pt.
[2024-12-20 23:31] VITALS: BP 159/58; PULSE 98; RESP 16; O2SAT 95
== END 2024-12-20 23:30 | disposition short-term general hospital (02) ==
PROVIDERS: Emergency Medicine; Emergency Provider Emergency Medicine; PCP Family Medicine
DX: G45.9 Transient cerebral ischemic attack, unspecified (principal); I25.10 Atherosclerotic heart disease of native coronary artery without angina pectoris; I10 Essential (primary) hypertension; R73.03 Prediabetes; E78.5 Hyperlipidemia, unspecified; K21.9 Gastro-esophageal reflux disease without esophagitis; M85.80 Other specified disorders of bone density and structure, unspecified site; Z95.1 Presence of aortocoronary bypass graft; Z90.710 Acquired absence of both cervix and uterus; Z98.42 Cataract extraction status, left eye; Z98.41 Cataract extraction status, right eye; Z77.22 Contact with and (suspected) exposure to environmental tobacco smoke (acute) (chronic); Z79.02 Long term (current) use of antithrombotics/antiplatelets; Z79.899 Other long term (current) drug therapy; Z79.82 Long term (current) use of aspirin
CPT/HCPCS: 36415; 70496; 70498; 71045; 80053; 81001; 82948; 83735; 84443; 85025; 85610; 85730; 87086; 93005; 99285; A9270; Q9967